=== PATIENT | male | born 1940 | race Caucasian/White ===

== ENCOUNTER → 2023-10-06 12:07 | Outpatient (REF) | payer MEDICARE, BC, SELFPAY ==
[2023-10-06 13:22] LABS: Blood Urea Nitrogen 35 mg/dl (9-20); Calcium 8.6 mg/dl (8.4-10.2); Carbon Dioxide 25 mmol/L (22-30); Chloride 106 mmol/L (98-107); Glucose 79 mg/dl (70-99); Potassium 4.5 mmol/L (3.5-5.1); Sodium 136 mmol/L (135-145); eGFR 46.77
== END ==
LOC: REG 12:07
PROVIDERS: ATTENDING PHYSICIAN Internal Medicine Cardiovascular Disease; FAMILY PHYSICIAN Internal Medicine
DX: I10 Essential (primary) hypertension (principal); I50.32 Chronic diastolic (congestive) heart failure
CPT/HCPCS: 36415; 80048

== ENCOUNTER 2023-10-17 09:39 | Emergency (ER) | payer MEDICARE, BC, SELFPAY ==
[2023-10-17] VITALS (9 sets, daily range): BP systolic 54–172; BP diastolic 62–72
--- NOTE | 2023-10-17 09:56 | ED.GENMED ---
History of Present Illness
<Cornelio Katz Jr., PA-C - Last Filed: 10/17/23 15:21>
General
Chief Complaint: Fall
Source: patient and ambulance crew
Exam Limitations: none
Time Seen by Provider: 10/17/23 09:47
Nursing documentation reviewed up to this point in time: agreed with
Travel History
Have you had any contact with someone who has COVID-19?: No
Do you have any symptoms of coronavirus? Fever > 100 degrees, chills, cough, shortness of breath, sore throat, loss of taste or smell, muscle aches, or headache?: No
History of Present Illness
History of Present Illness:
82-year-old male with past medical history of Parkinson's previous stroke COPD sarcoidosis A-fib currently on Eliquis CHF hypertension hyperlipidemia presenting to the emergency department today with concerns of worsening shortness of breath over
the past 2 days. He claims that 2 days ago he slipped going down the stairs missed 1 step fell forward landing on his right back. Has had pain to the area but tried to see how this went at home over the past 2 days but he has noticed worsening
shortness of breath specifically today.
Past History
<CINDY Lee Jr. Last Filed: 10/17/23 15:21>
Past History
ED Past Medical History: Arrthythmia (Atrial fib), Asthma, CHF, COPD, CVA, HTN, Hypercholesterolemia and Other (Sarcoid, PNA, Parkinson)
ED Past Surgical History: Appendectomy
Social History
Tobacco: Former smoker
Alcohol: Daily (Scotch 1 glasses)
Drug: None
Personal:
Living: with family
Employment: Retired
Family History
Family History: Other (Noncontributory)
Review of Systems
<CINDY Lee Jr. Last Filed: 10/17/23 15:21>
Review of Systems
Allergies reviewed?: Yes
All Other Systems: ROS reviewed and negative except as documented in HPI and ROS
Phy Exam
<Cornelio Katz Jr., PA-C - Last Filed: 10/17/23 15:21>
Physical Exam
Physical Exam:
GENERAL: Alert , in no apparent distress
EYE: pupils equal and reactive
NECK: Supple, no significant adenopathy.
ENT: Superficial abrasion to the right forehead o/p clr, mmm.
CARDIAC: Regular rate and rhythm .
LUNGS: Crepitus to the right upper back, audible lung sounds bilaterally. Breathing heavily some mild wheezing
ABDOMEN: Soft, without focal tenderness, no r/g, no cvat
NEUROLOGICAL: Alert and oriented, no focal neuro deficits
SKIN: Warm and dry, skin intact.
MUSCULOSKELETAL: No edema, well perfused.
PSYCH: Normal and appropriate interaction.
Course
<Cornelio Katz Jr., PA-C - Last Filed: 10/17/23 15:21>
Orders/Labs/Results
Orders:
Orders
10/17/23 09:52
CT Cervical Spine W/o Iv Contr Urgent
Comment:
Reason For Exam: fall hit head
CT Chest/abd/pel W Iv Cont Urgent
Comment:
Reason For Exam: trauma scan, fall hit right back, crepitus on exam
CT Head W/o Iv Contrast Urgent
Comment:
Reason For Exam: fall hit head, on eliquis
10/17/23 09:54
Morphine Sulfate 4 mg IV NOW STA
10/17/23 10:03
Type+Screen Urgent
BNP [NT-proBNP] Urgent
CBC/With Diff [Complete Blood Count/With Diff] Urgent
CMP [Comprehensive Metabolic Panel] Urgent
PT/INR [Prothrombin Time] Urgent
PTT Urgent
10/17/23 11:19
Urinalysis Reflex To Culture Urgent
Date Specimen was Collected: 10/17/23
Time Specimen was Collected: 11:17
Urine Microscopic Reflex Cult Urgent
10/17/23 11:46
Cervical Collar- Treatment ONCE
Collar Type: Hard Cervical Collar
10/17/23 11:48
Fentanyl Citrate/Pf [Sublimaze] 100 mcg IV NOW STA
10/17/23 11:53
Fibrinogen Urgent
Protime/PTT Urgent
10/17/23 12:14
Prothrombin Complex(Pcc),Human [Kcentra] 2,163 unit Empty Viaflex Container 100 ml [Viaflex Empty Container] 80 ml IV NOW
Does patient have a dx of serious acute active bleeding?: No
Does patient have prior history of HIT?: No
Urgent surgery/invasive procedure planned in next 6 hours?: Yes
10/17/23 12:23
Consult Interventional Radiology [IRAD CONSULT] Stat
Consulting Provider: Marco Antonio Lopez
Was physician already notified: Yes
Reason for consult: Chest tube
10/17/23 13:06
Fentanyl Citrate/Pf [Sublimaze] 100 mcg .ROUTE .STK-MED ONE
Midazolam HCl [Versed] 2 mg .ROUTE .STK-MED ONE
10/17/23 13:25
Chest Tube As Directed
Location: right chest tube
To suction: Yes
Suction to __ centimeters of water: -20
May ambulate with suction off?: Yes
Comment: RECORD OUTPUT FROM CHEST TUBE EVERY SHIFT
Abnormal Lab Results
10/17/23 10/17/23 10/17/23
10:03 11:19 11:53
RBC 4.11 L 10^6/uL
(4.70-6.10)
MCV 95.6 H fL
(80.0-94.0)
MCH 32.1 H pg
(27.0-31.0)
Absolute Neuts (auto) 7.7 H 10^3/uL
(1.4-6.5)
Absolute Lymphs (auto) 0.8 L 10^3/uL
(1.2-3.4)
Absolute Monos (auto) 0.7 H 10^3/uL
(0.1-0.6)
Neutrophils % 83.0 H %
(42.2-75.2)
Lymphocytes % 8.2 L %
(20.5-51.1)
PT 20.4 H Sec 21.7 H Sec
(11.4-14.6) (11.4-14.6)
APTT 39.2 H Sec 41.6 H Sec
(23.4-35.0) (23.4-35.0)
Fibrinogen 478 H MG/DL
(199-459)
BUN 29 H mg/dl
(9-20)
Creatinine 1.7 H mg/dL
(0.7-1.3)
Urine Ketones Trace A
(Negative)
Ur Occult Blood Reflex 1+ A
(Negative)
Urine Bacteria (Reflex) Few A
(Negative)
Urine Glucose 2+ A
(Negative)
10/17/23 10:03
10/17/23 10:03
Vital Signs
Initial and Last Documented VS:
Initial Vital Signs
Temp Pulse Resp BP Pulse Ox
97.5 F 57 24 149/64 95
10/17/23 09:46 10/17/23 09:46 10/17/23 09:46 10/17/23 09:46 10/17/23 09:46
Last Documented Vital Signs
Temp Pulse Resp BP Pulse Ox
97.5 F 51 22 146/63 98
10/17/23 13:34 10/17/23 14:15 10/17/23 14:15 10/17/23 14:00 10/17/23 14:15
<Antonio Boggs Polo, DO - Last Filed: 10/17/23 10:23>
Orders/Labs/Results
Orders:
Orders
10/17/23 09:52
CT Cervical Spine W/o Iv Contr Urgent
Comment:
Reason For Exam: fall hit head
CT Chest/abd/pel W Iv Cont Urgent
Comment:
Reason For Exam: trauma scan, fall hit right back, crepitus on exam
CT Head W/o Iv Contrast Urgent
Comment:
Reason For Exam: fall hit head, on eliquis
10/17/23 09:54
Morphine Sulfate 4 mg IV NOW STA
10/17/23 10:03
Type+Screen Urgent
BNP [NT-proBNP] Urgent
CBC/With Diff [Complete Blood Count/With Diff] Urgent
CMP [Comprehensive Metabolic Panel] Urgent
PT/INR [Prothrombin Time] Urgent
PTT Urgent
10/17/23 11:19
Urinalysis Reflex To Culture Urgent
Date Specimen was Collected: 10/17/23
Time Specimen was Collected: 11:17
Urine Microscopic Reflex Cult Urgent
10/17/23 11:46
Cervical Collar- Treatment ONCE
Collar Type: Hard Cervical Collar
10/17/23 11:48
Fentanyl Citrate/Pf [Sublimaze] 100 mcg IV NOW STA
10/17/23 11:53
Fibrinogen Urgent
Protime/PTT Urgent
10/17/23 12:14
Prothrombin Complex(Pcc),Human [Kcentra] 2,163 unit Empty Viaflex Container 100 ml [Viaflex Empty Container] 80 ml IV NOW
Does patient have a dx of serious acute active bleeding?: No
Does patient have prior history of HIT?: No
Urgent surgery/invasive procedure planned in next 6 hours?: Yes
10/17/23 12:23
Consult Interventional Radiology [IRAD CONSULT] Stat
Consulting Provider: Marco Antonio Lopez
Was physician already notified: Yes
Reason for consult: Chest tube
10/17/23 13:06
Fentanyl Citrate/Pf [Sublimaze] 100 mcg .ROUTE .STK-MED ONE
Midazolam HCl [Versed] 2 mg .ROUTE .STK-MED ONE
10/17/23 13:25
Chest Tube As Directed
Location: right chest tube
To suction: Yes
Suction to __ centimeters of water: -20
May ambulate with suction off?: Yes
Comment: RECORD OUTPUT FROM CHEST TUBE EVERY SHIFT
Abnormal Lab Results
10/17/23 10/17/23 10/17/23
10:03 11:19 11:53
RBC 4.11 L 10^6/uL
(4.70-6.10)
MCV 95.6 H fL
(80.0-94.0)
MCH 32.1 H pg
(27.0-31.0)
Absolute Neuts (auto) 7.7 H 10^3/uL
(1.4-6.5)
Absolute Lymphs (auto) 0.8 L 10^3/uL
(1.2-3.4)
Absolute Monos (auto) 0.7 H 10^3/uL
(0.1-0.6)
Neutrophils % 83.0 H %
(42.2-75.2)
Lymphocytes % 8.2 L %
(20.5-51.1)
PT 20.4 H Sec 21.7 H Sec
(11.4-14.6) (11.4-14.6)
APTT 39.2 H Sec 41.6 H Sec
(23.4-35.0) (23.4-35.0)
Fibrinogen 478 H MG/DL
(199-459)
BUN 29 H mg/dl
(9-20)
Creatinine 1.7 H mg/dL
(0.7-1.3)
Urine Ketones Trace A
(Negative)
Ur Occult Blood Reflex 1+ A
(Negative)
Urine Bacteria (Reflex) Few A
(Negative)
Urine Glucose 2+ A
(Negative)
10/17/23 10:03
10/17/23 10:03
Vital Signs
Initial and Last Documented VS:
Initial Vital Signs
Temp Pulse Resp BP Pulse Ox
97.5 F 57 24 149/64 95
10/17/23 09:46 10/17/23 09:46 10/17/23 09:46 10/17/23 09:46 10/17/23 09:46
Last Documented Vital Signs
Temp Pulse Resp BP Pulse Ox
97.5 F 51 22 146/63 98
10/17/23 13:34 10/17/23 14:15 10/17/23 14:15 10/17/23 14:00 10/17/23 14:15
<Cornelio Katz Jr., PA-C - Last Filed: 10/17/23 15:21>
MDM/Problems Addressed
MDM/Problems Addressed:
82-year-old male presenting to the emergency department today with concerns of right back discomfort and worsening shortness of breath over the past 2 days after a fall down 1 step. Here he is crepitus to his right upper back and appears short of
breath. Concern for internal injury plan for CT scan for further assessment. Patient was placed on oxygen and given pain medication. Labs obtained as well. Additionally head CT ordered considering did hit his head and is on Eliquis. CT scan
showing pneumothorax to the right side with 2 rib fractures to ribs 8 and 9. Case immediately discussed with trauma surgery at [facility] who accept transfer but requesting insertion of chest tube prior to transfer. This was placed by IR without
complication. Stable throughout ER stay transferred with ALS. Patient was given Kcentra for Eliquis reversal.
<Cornelio Katz Jr., PA-C - Last Filed: 10/17/23 15:21>
*Critical Care Note
Total Time (30-74mins, 75-104mins- exclusive of procedures): Not Applicable
comment:
Critical care statement: A total of 40 minutes of critical care time was provided for this patient. This includes management of unstable vital signs, evaluation of the patient at bedside, reviewing the patient's pertinent medical records, discussion
with consultants, review of old EKGs and review of pertinent medical records. This time with separate from time utilized to perform the aforementioned documented procedures
ED Attending Note
<Cornelio Katz Jr., PA-C - Last Filed: 10/17/23 15:21>
-
Portions of this chart may have been created with voice recognition software.� Occasional wrong word or��sound alike� substitutions may have occurred due to the inherent limitations of voice recognition software.
<Antonio Cuellar DO - Last Filed: 10/17/23 10:23>
ED Attending Note
Patient seen and examined by attending physician: Yes
I performed the substantive portion of visit, reviewed & personally made and approve the management plan that is documented in note by myself or ALISE.: Yes
I performed a history and physical exam of patient and discussed management with resident, I reviewed resident's note and agree with documented findings and plan of care.: Yes
ED Attending Note:
I evaluated the patient at bedside. He is tachypneic, he appears uncomfortable. He has crepitus on physical examination to the right posterolateral chest. There is no significant abdominal tenderness. He is on Eliquis. CT imaging pending.
Hemoglobin stable compared to prior.
Discharge Plan
Departure
Patient Disposition: Acute Care Hospital
Date of Disposition: 10/17/23
Time of Disposition: 13:12
Patient with high blood pressure during this ER visit?: No
Condition: Good
Covid-19: Not Applicable
Discharge Problem:
Acute pneumothorax, Multiple fractures of ribs of right side
Prescriptions:
No Action
amlodipine 2.5 MG tablet
2.5 mg PO DAILY
sertraline 50 MG tablet
50 mg PO DAILY
losartan 50 MG tablet
50 mg PO BID
rosuvastatin 10 MG tablet
10 mg PO QPM
Eliquis 5 MG tablet
5 mg PO BID
acetaminophen 650 mg Tablet Extended Release
650 mg PO Q8H PRN (Reason: fever)
furosemide 20 mg tablet
20 - 40 mg PO DAILY
Patient Comments:
10/17/2023: Per spouse pt is very non-complient with taking his lasix, she will find piles around the house of untaken med.
Rx Instructions:
20mg on days pt goes out, 40mg on days pt stays home
diphenhydramine-acetaminophen [Tylenol PM Extra Strength] 25-500 mg Tablet
1 tab PO HS
carbidopa-levodopa 25-100 mg tablet
1 tab PO TID
amiodarone 100 mg tablet
100 mg PO QPM
levalbuterol tartrate 45 mcg/actuation HFA aerosol inhaler
2 puff INHALATION R Q4 PRN (Reason: sob/wheezing)
Jardiance 10 mg tablet
10 mg PO DAILY
Breztri Aerosphere 160-9-4.8 mcg/actuation HFA aerosol inhaler
2 inh INHALATION R BID
Referrals:
Winston Sibley MD [Family Provider] -
Hospital Transfer
Other hospital: [facility]
I certify that the patient requires transfer: Yes
Discussed case with accepting physician: Delmi Chamorro
Reason for transfer: higher level of care, availability of service and specialties available
Interventions
Interventions:
*Risk Screen - Suicide Last Done: 10/17/23 09:46
*General Assessment Last Done: 10/17/23 09:46
*Neglect/Abuse Screening Last Done: 10/17/23 09:46
ED- Fall Risk Assessment Last Done: 10/17/23 10:42
*ED COVID-19 Vaccine History Last Done: 10/17/23 10:42
*Nursing Disposition Last Done: 10/17/23 15:08
ED-Musculoskeletal Assessment Last Done: 10/17/23 10:10
ED- Neurological Assessment Last Done: 10/17/23 10:10
ED-Skin Assessment Last Done: 10/17/23 10:10
Discharge Date and Time
Discharge Date/Time: 10/17/23 15:10
[2023-10-17] MEDS: MORPHINE SULFATE 4 MG IV (10:01)
[2023-10-17 10:13] LABS: % Basophils 0.2 % (0-2); % Eosinophils 0.8 % (0-6); % Immature Granulocytes 0.3 % (0-0.5); % Lymphocytes 8.2 % (20.5-51.1); % Monocytes 7.5 % (1.7-9.3); Absolute Eosinophils 0.1 10^3/uL (0-0.7); Absolute Lymphocytes 0.8 10^3/uL (1.2-3.4); Absolute Monocytes 0.7 10^3/uL (0.1-0.6); Absolute Neutrophils 7.7 10^3/uL (1.4-6.5); Hematocrit 39.3 % (39.0-52.0); Hemoglobin 13.2 g/dL (13.0-18.0); Mean Corp Hgb Conc. 33.6 g/dL (33.0-37.0); Mean Corpuscular Hgb 32.1 pg (27.0-31.0); Mean Corpuscular Volume 95.6 fL (80.0-94.0); Mean Platelet Volume 9.7 fL (7.4-10.4); Nucleated Red Blood Cells % 0 % (-); Platelet Count 195 10^3/uL (130-400); Red Blood Cell Count 4.11 10^6/uL (4.70-6.10); Red Cell Dist. Width 13.5 % (11.5-14.5); White Blood Cell Count 9.3 10^3/uL (4.8-10.8)
[2023-10-17 10:28] LABS: ALT (SGPT) 17 U/L (0-50); AST (SGOT) 44 U/L (17-59); Alkaline Phosphatase 94 U/L (38-126); Blood Urea Nitrogen 29 mg/dl (9-20); Calcium 8.7 mg/dl (8.4-10.2); Carbon Dioxide 26 mmol/L (22-30); Chloride 105 mmol/L (98-107); Glucose 98 mg/dl (70-99); INR 1.76; PT 20.4 Sec (11.4-14.6); Potassium 4.2 mmol/L (3.5-5.1); Sodium 138 mmol/L (135-145); Total Bilirubin 0.9 mg/dl (0.2-1.3); Total Protein 6.6 g/dl (6.3-8.2); eGFR 40.25
[2023-10-17 10:29] LABS: APTT 39.2 Sec (23.4-35.0)
[2023-10-17 10:37] LABS: NT-proBNP 1960 pg/ml
[2023-10-17 11:28] LABS: Urine Albumin Trace (Neg - Trace); Urine Bilirubin Negative (Negative); Urine Character Clear (Clear); Urine Color Yellow; Urine Glucose 2+ (Negative); Urine Ketone Trace (Negative); Urine Leukocyte Negative (Negative); Urine Nitrite Negative (Negative); Urine Occult Blood 1+ (Negative); Urine Urobilinogen Negative (Neg - 1+)
[2023-10-17 11:38] LABS: Urine Red Blood Cell 0-2 /HPF (0-2); Urine White Cell 0-2 /HPF (0-5)
[2023-10-17 11:39] LABS: Urine Bacteria Few (Negative)
[2023-10-17] MEDS: SUBLIMAZE 100 MCG IV (11:59)
[2023-10-17] MEDS: KCENTRA 80 UNIT IV (12:21)
[2023-10-17 12:27] LABS: Fibrinogen 478 MG/DL (199-459); PT 21.7 Sec (11.4-14.6)
[2023-10-17 12:28] LABS: APTT 41.6 Sec (23.4-35.0)
== END 2023-10-17 15:10 | disposition short-term general hospital (02) ==
LOC: EMR 09:39
PROVIDERS: Physician Assistant; CONSULT PHYSICIAN Radiology Vascular & Interventional Radiology; EMERGENCY PHYSICIAN Emergency Medicine; FAMILY PHYSICIAN Internal Medicine
DX: S22.41XA Multiple fractures of ribs, right side, initial encounter for closed fracture (principal); S32.038A Other fracture of third lumbar vertebra, initial encounter for closed fracture; J93.83 Other pneumothorax; W19.XXXA Unspecified fall, initial encounter; G20.A1 Parkinson's disease without dyskinesia, without mention of fluctuations; I11.0 Hypertensive heart disease with heart failure; I50.9 Heart failure, unspecified; D86.9 Sarcoidosis, unspecified; E78.00 Pure hypercholesterolemia, unspecified; I48.91 Unspecified atrial fibrillation; J44.89 Other specified chronic obstructive pulmonary disease; Z79.01 Long term (current) use of anticoagulants; Z86.73 Personal history of transient ischemic attack (TIA), and cerebral infarction without residual deficits; Z87.891 Personal history of nicotine dependence; Z90.49 Acquired absence of other specified parts of digestive tract
CPT/HCPCS: 99285; 32551; 96374; 96375; 32557; 70450; 71260; 72125; 74177; 80053; 81003; 81015; 83880; 85025; 85384; 85610; 85730; 86850; 86900; 86901; 99152; 99153; C1729; C1769; J7168; Q9967

== ENCOUNTER 2024-01-13 15:26 | Day surgery (SDC) | payer MEDICARE, BC, SELFPAY ==
[2024-01-13] VITALS (11 sets, daily range): BP systolic 129–161; BP diastolic 60–79; BMI 24.6
--- NOTE | 2024-01-13 07:47 | ED.GENMED ---
History of Present Illness
General
Chief Complaint: Swallowing Problem
Source: patient
Exam Limitations: none
Time Seen by Provider: 01/13/24 07:18
Nursing documentation reviewed up to this point in time: agreed with
Travel History
Have you had any contact with someone who has COVID-19?: No
Do you have any symptoms of coronavirus? Fever > 100 degrees, chills, cough, shortness of breath, sore throat, loss of taste or smell, muscle aches, or headache?: No
History of Present Illness
History of Present Illness:
pt is a 83 y/o M with h/o parkinsons, afib on eliquis, CHF on Lasix presents after eating dinner last night and feeling as though his food got stuck. Patient was eating gillespie chops and beets. He says he felt discomfort like his food did not go all
the way down. He tried drinking a small amount of water but then ended up bringing that up. He says he was awake all night with a cup and he was spitting into the cup every now and then. Patient does not have any discomfort currently, he does not
feel full. But he does have chronic shortness of breath secondary to COPD and feels a little bit short of breath this morning. This is not a new problem for him. He has been using lev albuterol inhaler and occasionally nebulizer. He has not had
a fever or chills, chest pain, pleuritic pain. This is never happened to him before, he has never had a food impaction or an endoscopy.
Past History
Past History
ED Past Medical History: Arrthythmia (Atrial fib), Asthma, CHF, COPD, CVA, HTN, Hypercholesterolemia and Other (Sarcoid, PNA, Parkinson)
ED Past Surgical History: Appendectomy
Social History
Tobacco: Former smoker
Alcohol: Daily (Scotch 1 glasses)
Drug: None
Personal:
Living: with family
Employment: Retired
Family History
Family History: Other (Noncontributory)
Review of Systems
Review of Systems
Allergies reviewed?: Yes
All Other Systems: Not applicable
Phy Exam
Physical Exam
Physical Exam:
GENERAL: Alert , appears slightly uncomfortable, has a bucket with saliva but is not actively drooling
EYE: pupils equal and reactive
NECK: Supple
ENT: o/p clr, mmm.
CARDIAC: Regular rate and rhythm .
LUNGS: Very faint end expiratory wheezing, mild tachypnea no acute respiratory distress, no wheezes/rales/rhonchi
ABDOMEN: Soft, without focal tenderness, no r/g, no cvat, normal bowel sounds
NEUROLOGICAL: Alert and oriented, no focal neuro deficits
SKIN: Warm and dry, skin intact.
MUSCULOSKELETAL: Trace edema bilateral lower extremities
PSYCH: Normal and appropriate interaction.
Course
Orders/Labs/Results
Orders:
Orders
01/13/24 07:40
CR Chest - 2 Views Urgent
Comment:
Reason For Exam: food bolus; copd; aspiration?
01/13/24 07:45
Complete Blood Count/With Diff Urgent
Comprehensive Metabolic Panel Urgent
01/13/24 08:26
Levalbuterol [Xopenex 0.63 mg Inhalant Solution] 0.63 mg INH R NOW STA
01/13/24 08:30
Glucagon [GlucaGen] 1 mg IV NOW STA
01/13/24 09:11
Glucagon [GlucaGen] 1 mg IV NOW STA
01/13/24 13:12
Dexamethasone Pf [Decadron] 10 mg .ROUTE .STK-MED ONE
Lidocaine 2% Mpf [Xylocaine Mpf 2%] 100 mg .ROUTE .STK-MED ONE
Ondansetron Injectable [Zofran] 4 mg .ROUTE .STK-MED ONE
01/13/24 13:13
Fentanyl Citrate/Pf [Sublimaze] 100 mcg .ROUTE .STK-MED ONE
Propofol [Diprivan] 20 ml .ROUTE .STK-MED
Rocuronium [place] [Rocuronium] 50 mg .ROUTE .STK-MED ONE
Succinylcholine Chloride [Succinylcholine] 200 mg .ROUTE .STK-MED ONE
01/13/24 13:14
Sugammadex Sodium [Bridion] 200 mg .ROUTE .STK-MED ONE
01/13/24 13:53
HYDROmorphone [Dilaudid] 0.25 mg IV PACU-Q5MPRN PRN
Meperidine [Demerol] 12.5 mg IV PACU-Q5MPRN PRN
Morphine Sulfate 1 mg IV PACU-Q5MPRN PRN
Ondansetron Injectable [Zofran] 4 mg IV PACU-ONCEPRN PRN
Prochlorperazine [Compazine] 5 mg IV PACU-ONCEPRN PRN
Notify MD As Directed
Notify physician if: for SDS patients with known or suspected sleep obstructive sleep apnea, monitor in the
PACU.
Notify MD for any apneic/desaturation episodes
O2 Therapy [RESP] Urgent
Titrate/Wean O2 to maintain O2 sat greater than (%): 92
Special Instructions: -Provide supplemental oxygen to achieve O2 sat of 92% or greater.
-After 15 min, may wean O2 and discontinue if patient is able to maintain O2 sat of 92%
or greater during recovery period.
If patient is a discharge home, without oxygen therapy, notify anestheiologist if
unable to maintain O2 SAT of 92% or greater on room air for MD clearance.
01/13/24 14:00
Normosol (Mult Electrolytes) [Normosol-R] 1,000 ml IV PER PROTOCOL
01/13/24 14:12
Sugammadex Sodium [Bridion] 200 mg .ROUTE .STK-MED ONE
Abnormal Lab Results
01/13/24
07:45
RBC 4.06 L 10^6/uL
(4.70-6.10)
Hgb 12.6 L g/dL
(13.0-18.0)
Hct 37.8 L %
(39.0-52.0)
Absolute Lymphs (auto) 1.0 L 10^3/uL
(1.2-3.4)
Neutrophils % 78.6 H %
(42.2-75.2)
Lymphocytes % 12.9 L %
(20.5-51.1)
BUN 46 H mg/dl
(9-20)
Creatinine 1.7 H mg/dL
(0.7-1.3)
01/13/24 07:45
01/13/24 07:45
Vital Signs
Initial and Last Documented VS:
Initial Vital Signs
Temp Pulse Resp BP Pulse Ox
98.5 F 50 16 144/60 96
01/13/24 07:07 01/13/24 07:07 01/13/24 07:07 01/13/24 07:07 01/13/24 07:07
Last Documented Vital Signs
Temp Pulse Resp BP Pulse Ox
98.5 F 54 16 144/68 95
01/13/24 07:07 01/13/24 12:26 01/13/24 08:29 01/13/24 13:00 01/13/24 13:15
MDM/Problems Addressed
Differential Diagnosis Includes:
food bolus, esophagitis, copd
MDM/Problems Addressed:
83 y/o M with h/o parkinsons
was eating dinner and felt food get stuck
hasn't been able to tolerate po since
spiting secretions into a basin
awake all night
also has COPD and felt some sob this morning, due for a treatment
on exam stable vitals
very faint end exp wheezes
and scretions in a basin, no resp distress, no drooling
d/w gi who recommended glucagon 1 mg IV x 2 and if no improvement, gi suite
pt did get smoe chunks of something after glucagon but then did not tolerate a sip of water
went to endoscopy
to be d/c'd from suite.
*Critical Care Note
Total Time (30-74mins, 75-104mins- exclusive of procedures): Not Applicable
ED Attending Note
-
Portions of this chart may have been created with voice recognition software.� Occasional wrong word or��sound alike� substitutions may have occurred due to the inherent limitations of voice recognition software.
Discharge Plan
Departure
Patient Disposition: GI LAB
Date of Disposition: 01/13/24
Time of Disposition: 14:20
Presentation/result/management discussed w/ accepting MD/DO: av
Condition: Fair
Covid-19: Not Applicable
Discharge Problem:
Food bolus obstruction of intestine
Prescriptions:
No Action
amlodipine 2.5 MG tablet
2.5 mg PO DAILY
sertraline 50 MG tablet
50 mg PO DAILY
losartan 50 MG tablet
50 mg PO BID
rosuvastatin 10 MG tablet
10 mg PO QPM
Eliquis 5 MG tablet
5 mg PO BID
acetaminophen 650 mg Tablet Extended Release
650 mg PO Q8H PRN (Reason: fever)
furosemide 20 mg tablet
20 - 40 mg PO DAILY
Patient Comments:
10/17/2023: Per spouse pt is very non-complient with taking his lasix, she will find piles around the house of untaken med.
Rx Instructions:
20mg on days pt goes out, 40mg on days pt stays home
diphenhydramine-acetaminophen [Tylenol PM Extra Strength] 25-500 mg Tablet
1 tab PO HS
carbidopa-levodopa 25-100 mg tablet
1 tab PO TID
amiodarone 100 mg tablet
100 mg PO QPM
levalbuterol tartrate 45 mcg/actuation HFA aerosol inhaler
2 puff INHALATION R Q4 PRN (Reason: sob/wheezing)
Jardiance 10 mg tablet
10 mg PO DAILY
Breztri Aerosphere 160-9-4.8 mcg/actuation HFA aerosol inhaler
2 inh INHALATION R BID
Referrals:
Winston Sibley MD [Family Provider] -
Interventions
Interventions:
*Risk Screen - Suicide Last Done: 01/13/24 07:12
*General Assessment Last Done: 01/13/24 07:11
*Neglect/Abuse Screening Last Done: 01/13/24 07:12
ED- Fall Risk Assessment Last Done: 01/13/24 07:12
*ED COVID-19 Vaccine History Last Done: 01/13/24 07:11
*Nursing Disposition Last Done: 01/13/24 14:14
ED-EENT Assessment Last Done: 01/13/24 07:13
QH-Isdeql-Klzsgwjcrg Assessment Last Done: 01/13/24 07:13
ED- Pulmonary Assessment Last Done: 01/13/24 07:13
ED- Neurological Assessment Last Done: 01/13/24 07:13
ED Swallowing Screen Last Done: 01/13/24 13:29
Discharge Date and Time
Discharge Date/Time: 01/13/24 14:21
Print Language: UGANDAN
[2024-01-13 07:52] LABS: % Basophils 0.4 % (0-2); % Eosinophils 1.8 % (0-6); % Immature Granulocytes 0.3 % (0-0.5); % Lymphocytes 12.9 % (20.5-51.1); % Neutrophils 78.6 % (42.2-75.2); Absolute Eosinophils 0.1 10^3/uL (0-0.7); Absolute Monocytes 0.5 10^3/uL (0.1-0.6); Absolute Neutrophils 6.1 10^3/uL (1.4-6.5); Hematocrit 37.8 % (39.0-52.0); Hemoglobin 12.6 g/dL (13.0-18.0); Mean Corp Hgb Conc. 33.3 g/dL (33.0-37.0); Mean Corpuscular Volume 93.1 fL (80.0-94.0); Mean Platelet Volume 9.6 fL (7.4-10.4); Nucleated Red Blood Cells % 0 % (-); Platelet Count 222 10^3/uL (130-400); Red Blood Cell Count 4.06 10^6/uL (4.70-6.10); Red Cell Dist. Width 13.9 % (11.5-14.5); White Blood Cell Count 7.7 10^3/uL (4.8-10.8)
[2024-01-13 08:23] LABS: ALT (SGPT) < 10 U/L (0-50); AST (SGOT) 23 U/L (17-59); Alkaline Phosphatase 111 U/L (38-126); Blood Urea Nitrogen 46 mg/dl (9-20); Calcium 9.2 mg/dl (8.4-10.2); Carbon Dioxide 25 mmol/L (22-30); Chloride 106 mmol/L (98-107); Estimated Creatinine Clearance 37 ml/min; Glucose 96 mg/dl (70-99); Potassium 4.7 mmol/L (3.5-5.1); Sodium 141 mmol/L (135-145); Total Bilirubin 0.6 mg/dl (0.2-1.3); Total Protein 6.7 g/dl (6.3-8.2)
[2024-01-13] MEDS: XOPENEX 0.63 MG INHALANT SOLUTION 0.630000000000000004 MG INH (08:30)
[2024-01-13] MEDS: GlucaGen 1 MG IV ×2 (08:40→09:17)
--- NOTE | 2024-01-13 12:03 | CON.GI ---
Consultation
-
Date/Time Consultation Requested: 01/13/24 at 9am
Date/Time Consultation Performed: 01/13/24 at 9:30 am
Requesting Provider: Denita
Performing Provider: Trinh
Reason for Consultation: food impaction
Medical History
Chief Complaint / HPI
Chief Complaint: food impaction
History of Present Illness:
Pt is a 83 y/o man with parkinsons, on eliquis for hx of afib, chf, copd who has a hx of intermittent dysphagia to solids, no food impactions but does sometimes wash food down. he had gillespie and beets yesterday and had feeling of food getting stuck.
he has had some spitting of red beet juice. he did get 2 doses of glucoagon which improved his symptoms but not totally alleviated. He doesn't have overt gerd. he has never had an endoscopy. he is in the ER with his .
Past Medical History
Past Medical History: Other (afib, copd, chf, cva, htn, parkinsons)
Past Surgical History: Appendectomy
Social History
Tobacco: Former Smoker
Alcohol: Other (daily scotch)
Personal:
Family History
Family History: Reviewed & Not Pertinent
Allergies / Home Medications
Allergy/AdvReac Type Severity Reaction Status Date / Time
grass pollen Allergy SNEEZE,WATERY Verified 10/17/23 09:45
EYES
No Known Drug Allergies Allergy NA Verified 10/17/23 09:45
�Medication �Instructions �Recorded
amlodipine 2.5 mg tablet 2.5 mg PO DAILY Blood pressure 11/17/20
apixaban 5 mg tablet (Eliquis) 5 mg PO BID Blood clot 08/21/21
prevention/tx
losartan 50 mg tablet 50 mg PO BID Blood pressure 08/21/21
rosuvastatin 10 mg tablet 10 mg PO QPM High cholesterol 08/21/21
sertraline 50 mg tablet 50 mg PO DAILY 08/21/21
acetaminophen 650 mg 650 mg PO Q8H PRN fever 10/17/23
tablet,extended release
amiodarone 100 mg tablet 100 mg PO QPM 10/17/23
budesonide 160 mcg-glycopyr 9 2 inh inhalation R BID 10/17/23
mcg-formot 4.8 mcg/actuation HFA
inhaler (Breztri Aerosphere)
carbidopa 25 mg-levodopa 100 mg 1 tab PO TID 10/17/23
tablet
diphenhydramine 25 1 tab PO HS 10/17/23
mg-acetaminophen 500 mg tablet
(Tylenol PM Extra Strength)
empagliflozin 10 mg tablet 10 mg PO DAILY 10/17/23
(Jardiance)
furosemide 20 mg tablet 20 - 40 mg PO DAILY 10/17/23
levalbuterol tartrate 45 2 puff inhalation R Q4 PRN 10/17/23
mcg/actuation aerosol inhaler sob/wheezing
Review of Systems
-
All other systems: A 12 pt ROS was Negative except as stated above in HPI
Vital Signs
Temp Pulse Resp BP Pulse Ox
98.5 F 55 16 153/73 95
01/13/24 07:07 01/13/24 08:29 01/13/24 08:29 01/13/24 11:00 01/13/24 11:15
Physical Exam
Exam
General: Other (some discomfort due to feeling of impaction)
HEENT: Anicteric
Cardiac: S1/S2 and Regular Rhythm
GI: Soft, Non Tender and Non Distended
Neuro: AO x 3
Psych: Calm
Results
WBC 7.7 10^3/uL (4.8-10.8) 01/13/24 07:45
Hgb 12.6 g/dL (13.0-18.0) L 01/13/24 07:45
Hct 37.8 % (39.0-52.0) L 01/13/24 07:45
MCV 93.1 fL (80.0-94.0) 01/13/24 07:45
Plt Count 222 10^3/uL (130-400) 01/13/24 07:45
Absolute Neuts (auto) 6.1 10^3/uL (1.4-6.5) 01/13/24 07:45
Sodium 141 mmol/L (135-145) 01/13/24 07:45
Potassium 4.7 mmol/L (3.5-5.1) 01/13/24 07:45
Chloride 106 mmol/L (98-107) 01/13/24 07:45
Carbon Dioxide 25 mmol/L (22-30) 01/13/24 07:45
BUN 46 mg/dl (9-20) H 01/13/24 07:45
Creatinine 1.7 mg/dL (0.7-1.3) H 01/13/24 07:45
Calcium 9.2 mg/dl (8.4-10.2) 01/13/24 07:45
Total Bilirubin 0.6 mg/dl (0.2-1.3) 01/13/24 07:45
AST 23 U/L (17-59) 01/13/24 07:45
ALT < 10 U/L (0-50) 01/13/24 07:45
Alkaline Phosphatase 111 U/L (38-126) 01/13/24 07:45
Assessment / Plan
-
This patient is a 83 y/o man with a hx of afib on eliquis, copd, parkinsons with a food impaction. His INR is 1.9, he did receive glucagon. Recommend
EGD today with intubation and removal of food impaction
will need outpatient PPI
-
-
Thank you for consultation and allowing me to participate in the patient's care. Please call the forestry consultant GI physician during the after hours with any questions or concerns.
== END 2024-01-13 15:50 | disposition home or self-care (01) ==
LOC: GI 15:26
PROVIDERS: Physician Assistant; ATTENDING PHYSICIAN Internal Medicine; EMERGENCY PHYSICIAN Emergency Medicine; FAMILY PHYSICIAN Internal Medicine
DX: T18.128A Food in esophagus causing other injury, initial encounter (principal); W44.9XXA Unspecified foreign body entering into or through a natural orifice, initial encounter; K20.90 Esophagitis, unspecified without bleeding
CPT/HCPCS: 43247; 71046; 80053; 85025; J1610

== ENCOUNTER 2024-04-08 08:54 | Inpatient (IN) | payer MEDICARE, BC, SELFPAY ==
[2024-04-07] VITALS (9 sets, daily range): BP systolic 121–170; BP diastolic 53–84; PULSE 53; O2SAT 96; BMI 24.4; BMI 25.3
--- NOTE | 2024-04-07 15:40 | ED.GENMED ---
History of Present Illness
<Chayito Jones MD, Resident - Last Filed: 04/07/24 18:41>
General
Chief Complaint: Fall
Time Seen by Provider: 04/07/24 15:08
History of Present Illness
History of Present Illness:
83 yo male today presented to ER after he fall down at [facility] around 1.00 pm. He stated that he was trying to go inside of the elevator with his walker and, the elevator door pushed him back. He reported that he fall down on his back
and hit his head. He reports pain on his back of head, on his neck and on his left shoulder. He denies chest pain, dizziness and SOB.
If applicable-neuro sx onset
Date of onset of symptoms: 04/07/24
Past History
<Chayito Jones MD, Resident - Last Filed: 04/07/24 18:41>
Past History
ED Past Medical History: Arrthythmia (Atrial fib), Asthma, CHF, COPD, CVA, HTN, Hypercholesterolemia and Other (Sarcoid, PNA, Parkinson)
ED Past Surgical History: Appendectomy
Social History
Tobacco: Former smoker
Alcohol: Daily (Scotch 1 glasses)
Drug: None
Personal:
Living: with family
Employment: Retired
Family History
Family History: Other (Noncontributory)
Phy Exam
<Chayito Jones MD, Resident - Last Filed: 04/07/24 18:41>
General Physical Exam
General Presentation: moderate distress
General age: appears stated age
General Skin: warm
General Mental: alert
Cardiovascular Exam
Cardiovascular Exam: no edema, no JVD and other
Pulmonary Exam
Pulmonary Exam: lungs clear, no respiratory distress, no crackles and no wheezing
Neurological Exam
Neurological Exam: alert, oriented x3 and speech normal
Musculoskeletal Exam
Musculoskeletal Exam: neck pain and other (left shoulder ROM is limited with pain. Pain on left clavicular area )
Course
<Chayito Jones MD, Resident - Last Filed: 04/07/24 18:41>
Orders/Labs/Results
Orders:
Orders
04/07/24 14:08
CT Head W/o Iv Contrast Urgent
Comment:
Reason For Exam: pt fell, injured back of head, on eliquis
Cervical Spine wo Contrast CT [CT Cervical Spine W/o Iv Contr] Urgent
Comment:
Reason For Exam: pt fell, injured back of head, on eliquis
04/07/24 14:09
Shoulder, Left, Trauma CR [CR Shoulder, Trauma - Left] Urgent
Comment:
Reason For Exam: fall, left shoulder injury
04/07/24 Dinner
Regular
At Your Request: Limited Participation
04/07/24 15:36
Physical Therapy Consult [Pt Eval And Treat] Urgent
Activity Level: Ambulate
04/07/24 15:48
Acetaminophen [Tylenol] 1,000 mg PO Q6HPRN PRN
04/07/24 16:16
Sling Left-Treatment ONCE
04/07/24 16:57
Admit/Transfer Patient As Directed
Co-Sign Provider:
Level of Care: Observation services
Assign to:: Medical/Surgical
Physician / Group: charisse
Diagnosis: clavicle fracture
PRN Pain Medication Management As Directed
May give lesser potent ordered pain med per pt: Yes
preference::
Protocol:: Medication orders for pain may be administered in a
manner that supports deferring to patient preference
when the pt is:
- Requesting an ordered lesser potent pain medication.
Least to most potent pain medications are defined
as: acetaminophen < NSAID < tramadol < opioids
(morphine, oxycodone, hydromorphone).
- Requesting a lesser dose of the same medication IF
ORDERED.
- Requesting a less intrusive route of administration
if both routes are prescribed by the provider (PO <
IV).
04/07/24 16:58
Code Status As Directed
Resuscitation Status: Full Code
04/07/24 18:31
Acetaminophen [Tylenol] 650 mg PO Q4HPRN PRN
Amiodarone [Pacerone] 100 mg PO QPM
Carbidopa/Levodopa [Sinemet 25-100] 1 tablet PO BID@0800,1800
Levalbuterol Tartrate [Xopenex Hfa 45 Mcg Inhaler] 2 puff INH R Q4HPRN PRN
Oxycodone [Roxicodone] 5 mg PO Q4HPRN PRN
Rosuvastatin Calcium [Crestor] 10 mg PO QPM
04/07/24 18:31
Case Management Consult ONCE
Case Management Consult: Discharge Planning
ORTHOPEDIC CONSULT Routine
Consulting Provider: Guillermo Berry
Was physician already notified: Yes
Activity As Directed
Activity Level: As Tolerated
Pneumatic Compression Sleeves As Directed
Type: Knee high
Vital Signs As Directed
Frequency: Per unit guidelines
Xopenex Reason for Use As Directed
Reason for ordering Xopenex instead of Albuterol: tachy
DX Deep Vein Thrombosis Video Routine
04/07/24 20:00
Losartan [Cozaar] 50 mg PO BID
04/08/24 06:00
Basic Metabolic Panel IN AM
Complete Blood Count/No Diff IN AM
04/08/24 08:00
Amlodipine [Norvasc] 2.5 mg PO DAILY
Empagliflozin [Jardiance] 10 mg PO DAILY
Furosemide [Lasix] 20 mg PO DAILY
Sertraline HCl [Zoloft] 50 mg PO DAILY
itwfbkdyoaf-qdkxylvka-sanbjxwr [Trelegy Ellipta] 1 inh INH R DAILY
04/08/24 12:00
Carbidopa/Levodopa [Sinemet 25-100] 1.5 tablet PO NOON
Vital Signs
Initial and Last Documented VS:
Initial Vital Signs
Temp Pulse Resp BP Pulse Ox
97.4 F 46 18 137/63 96
04/07/24 14:04 04/07/24 14:04 04/07/24 14:04 04/07/24 14:04 04/07/24 14:04
Last Documented Vital Signs
Temp Pulse Resp BP Pulse Ox
97.7 F 55 18 169/84 97
04/07/24 18:52 04/07/24 18:52 04/07/24 18:52 04/07/24 18:52 04/07/24 18:52
<Antonio Cuellar, - Last Filed: 04/07/24 19:03>
Orders/Labs/Results
Orders:
Orders
04/07/24 14:08
CT Head W/o Iv Contrast Urgent
Comment:
Reason For Exam: pt fell, injured back of head, on eliquis
Cervical Spine wo Contrast CT [CT Cervical Spine W/o Iv Contr] Urgent
Comment:
Reason For Exam: pt fell, injured back of head, on eliquis
04/07/24 14:09
Shoulder, Left, Trauma CR [CR Shoulder, Trauma - Left] Urgent
Comment:
Reason For Exam: fall, left shoulder injury
04/07/24 Dinner
Regular
At Your Request: Limited Participation
04/07/24 15:36
Physical Therapy Consult [Pt Eval And Treat] Urgent
Activity Level: Ambulate
04/07/24 15:48
Acetaminophen [Tylenol] 1,000 mg PO Q6HPRN PRN
04/07/24 16:16
Sling Left-Treatment ONCE
04/07/24 16:57
Admit/Transfer Patient As Directed
Co-Sign Provider:
Level of Care: Observation services
Assign to:: Medical/Surgical
Physician / Group: charisse
Diagnosis: clavicle fracture
PRN Pain Medication Management As Directed
May give lesser potent ordered pain med per pt: Yes
preference::
Protocol:: Medication orders for pain may be administered in a
manner that supports deferring to patient preference
when the pt is:
- Requesting an ordered lesser potent pain medication.
Least to most potent pain medications are defined
as: acetaminophen < NSAID < tramadol < opioids
(morphine, oxycodone, hydromorphone).
- Requesting a lesser dose of the same medication IF
ORDERED.
- Requesting a less intrusive route of administration
if both routes are prescribed by the provider (PO <
IV).
04/07/24 16:58
Code Status As Directed
Resuscitation Status: Full Code
04/07/24 18:31
Acetaminophen [Tylenol] 650 mg PO Q4HPRN PRN
Amiodarone [Pacerone] 100 mg PO QPM
Carbidopa/Levodopa [Sinemet 25-100] 1 tablet PO BID@0800,1800
Levalbuterol Tartrate [Xopenex Hfa 45 Mcg Inhaler] 2 puff INH R Q4HPRN PRN
Oxycodone [Roxicodone] 5 mg PO Q4HPRN PRN
Rosuvastatin Calcium [Crestor] 10 mg PO QPM
04/07/24 18:31
Case Management Consult ONCE
Case Management Consult: Discharge Planning
ORTHOPEDIC CONSULT Routine
Consulting Provider: Guillermo Berry
Was physician already notified: Yes
Activity As Directed
Activity Level: As Tolerated
Pneumatic Compression Sleeves As Directed
Type: Knee high
Vital Signs As Directed
Frequency: Per unit guidelines
Xopenex Reason for Use As Directed
Reason for ordering Xopenex instead of Albuterol: tachy
DX Deep Vein Thrombosis Video Routine
04/07/24 20:00
Losartan [Cozaar] 50 mg PO BID
04/08/24 06:00
Basic Metabolic Panel IN AM
Complete Blood Count/No Diff IN AM
04/08/24 08:00
Amlodipine [Norvasc] 2.5 mg PO DAILY
Empagliflozin [Jardiance] 10 mg PO DAILY
Furosemide [Lasix] 20 mg PO DAILY
Sertraline HCl [Zoloft] 50 mg PO DAILY
nyrjsaejold-kpdbgzewt-baufbwqa [Trelegy Ellipta] 1 inh INH R DAILY
04/08/24 12:00
Carbidopa/Levodopa [Sinemet 25-100] 1.5 tablet PO NOON
Vital Signs
Initial and Last Documented VS:
Initial Vital Signs
Temp Pulse Resp BP Pulse Ox
97.4 F 46 18 137/63 96
04/07/24 14:04 04/07/24 14:04 04/07/24 14:04 04/07/24 14:04 04/07/24 14:04
Last Documented Vital Signs
Temp Pulse Resp BP Pulse Ox
97.7 F 55 18 169/84 97
04/07/24 18:52 04/07/24 18:52 04/07/24 18:52 04/07/24 18:52 04/07/24 18:52
<Chayito Jones MD, Resident - Last Filed: 04/07/24 18:41>
*Critical Care Note
Total Time (30-74mins, 75-104mins- exclusive of procedures): Not Applicable
<Chayito Jones MD, Resident - Last Filed: 04/07/24 18:41>
Comment
Comment:
Head trauma, musculoskeletal injury?
ED Attending Note
<Chayito Jones MD, Resident - Last Filed: 04/07/24 18:41>
-
Portions of this chart may have been created with voice recognition software.� Occasional wrong word or��sound alike� substitutions may have occurred due to the inherent limitations of voice recognition software.
<Antonio Cuellar DO - Last Filed: 04/07/24 19:03>
ED Attending Note
Patient seen and examined by attending physician: Yes
I performed the substantive portion of visit, reviewed & personally made and approve the management plan that is documented in note by myself or ALISE.: Yes
I performed a history and physical exam of patient and discussed management with resident, I reviewed resident's note and agree with documented findings and plan of care.: Yes
ED Attending Note:
I evaluated the patient at bedside. The patient has Parkinson's. I spoke to care management. He is found to have a medial left clavicle fracture which is comminuted. I spoke to Dr. Berry. He recommends sling for 4 weeks before resuming
walker. Unfortunately he lives at home with and he cannot safely be discharged. I spoke to care management. Care management says that he has Medicare primary and IBC secondary. I spoke to hospitalist who accepts to their service.
Discharge Plan
Departure
Patient Disposition: Admit
Date of Disposition: 04/07/24
Time of Disposition: 16:37
Presentation/result/management discussed w/ accepting MD/DO: Hospitalist
Discharge Problem:
Clavicle fracture
Interventions
Interventions:
*Risk Screen - Suicide Last Done: 04/07/24 14:04
*General Assessment Last Done: 04/07/24 14:04
*Neglect/Abuse Screening Last Done: 04/07/24 14:04
ED- Fall Risk Assessment Last Done: 04/07/24 15:06
*ED COVID-19 Vaccine History Last Done: 04/07/24 15:06
*Nursing Disposition Last Done: 04/07/24 18:42
ED-Musculoskeletal Assessment Last Done: 04/07/24 15:06
ED- Neurological Assessment Last Done: 04/07/24 15:06
ED-Skin Assessment Last Done: 04/07/24 15:06
Discharge Date and Time
Discharge Date/Time: 04/07/24 18:42
[2024-04-07] MEDS: TYLENOL 1000 MG PO (16:27)
--- NOTE | 2024-04-07 16:30 | PTCARENOTE ---
Sling applied per MD order. Pt states his pain is worse with the sling on. Sling taken off per pt request. Pt medicated with Tylenol. Will retry the sling later. Will continue to monitor.
[ End ]
--- NOTE | 2024-04-07 17:00 | HPS.HSE ---
Addendum entered and electronically signed by Frankie Dudley MD 04/08/24 16:18:
Correction to H&P. Retraction of 'PT and case management saw patient, patient requires 3 days admission for placement given Medicare, family cannot take him home' as this was not accurate and entered in error.
Original Note:
Family Physician
-
Family Physician: Winston Sibley
Chief Complaint
-
fall
History of Present Illness
83-year-old male with past medical history of paroxysmal atrial fibrillation on Eliquis, nonsustained V. tach, frequent PVCs, right bundle branch, hypertension, hypercholesteremia, HFpEF, prior CVA, COPD, asthma, sarcoidosis, obstructive sleep
apnea, Parkinson's disease, depression, chronic venous deficiency, diverticulosis, colonic polyps, lumbar degenerative disc disease, compression fractures of L2-L4, CKD 3, presenting after fall down at [facility] 1 PM. He was trying to go
inside of the elevator with his walker and the elevator door pushed him back. He fell down onto his back and hit his head. He has pain on the back of his head and neck and left shoulder. He denies chest pain or shortness of breath or dizziness.
Medical History
Past Medical History
Past Medical History: Reports Other (paroxysmal atrial fibrillation on Eliquis, nonsustained V. tach, frequent PVCs, right bundle branch, hypertension, hypercholesteremia, HFpEF, prior CVA, COPD, asthma, sarcoidosis, obstructive sleep apnea,
Parkinson's disease, depression, chronic venous deficiency, diverticulosis, colonic polyps, lum)
Past Surgical History: Reports Other (Appendectomy)
Social History
Tobacco: Non-smoker
Alcohol: Daily (1 drink daily )
Drug: None
Family History
Family History: Not pertinent
Allergies / Home Medications
Allergies reflects when Allergies were last updated in [employer].
Home Medications with original date entered in [employer]
Allergy/Medication List:
Allergies
Allergy/AdvReac Type Severity Reaction Status Date / Time
grass pollen Allergy SNEEZE,WATERY Verified 10/17/23 09:45
EYES
No Known Drug Allergies Allergy NA Verified 10/17/23 09:45
Home Medications
amlodipine 2.5 mg tablet 2.5 mg PO DAILY Blood pressure 11/17/20
apixaban 5 mg tablet (Eliquis) 5 mg PO BID Blood clot prevention/tx 08/21/21
losartan 50 mg tablet 50 mg PO BID Blood pressure 08/21/21
rosuvastatin 10 mg tablet 10 mg PO QPM High cholesterol 08/21/21
sertraline 50 mg tablet 50 mg PO DAILY 08/21/21
amiodarone 100 mg tablet 100 mg PO QPM 10/17/23
carbidopa 25 mg-levodopa 100 mg tablet 1 tab PO BID@0800,1800 10/17/23
diphenhydramine 25 mg-acetaminophen 500 mg tablet (Tylenol PM Extra Strength) 1 tab PO HS 10/17/23
empagliflozin 10 mg tablet (Jardiance) 10 mg PO DAILY 10/17/23
furosemide 20 mg tablet 20 mg PO DAILY 10/17/23
levalbuterol tartrate 45 mcg/actuation aerosol inhaler 2 puff inhalation R Q4HPRN PRN sob/wheezing 10/17/23
carbidopa 25 mg-levodopa 100 mg tablet 1.5 tab PO NOON 04/07/24
fluticasone fur. 100 mcg-umeclid 62.5 mcg-vilant 25 mcg inhalat.powder (Trelegy Ellipta) 1 inh inhalation R DAILY 04/07/24
Review of Systems
-
History Source: Patient
A 12 point ROS was completed and negative except as noted: Yes
Constitutional: Reports No Symptoms
EENT: Reports No Symptoms
Respiratory: Reports No Symptoms
Cardiac: Reports No Symptoms
Abdomen/GI: Reports No Symptoms
: Reports No Symptoms
Musculoskeletal: Reports See HPI
Skin: Reports No Symptoms
Neurological: Reports No Symptoms
Endocrine: Reports No Symptoms
Hematologic/Lymphatic: Reports No Symptoms
Psych: Reports No Symptoms
Physical Exam
Vital Signs
Vital Signs
Temp Pulse Resp BP Pulse Ox
97.4 F 51 28 169/77 98
04/07/24 14:04 04/07/24 16:30 04/07/24 16:30 04/07/24 16:18 04/07/24 16:18
Physical Exam
General: Well Developed, Well Nourished and No Apparent Distress
HEENT: NormoCephalic, Moist mucous membranes, Atraumatic and Other (posterior scalp hematoma left shoulder swelling )
Respiratory: Clear
Cardiac: S1/S2 and Regular Rhythm; No Murmur or Rub
GI: Soft, Non Tender, Non Distended and Normal Bowel Sounds; No Organomegaly
Rectal: Deferred by Provider
Musculoskeletal: No Clubbing, No Cyanosis and No Edema
Skin: No Rash
Neuro: Nonfocal/grossly intact
Data Reviewed
-
Lab Data: Labs Reviewed by me
Old Records: Reviewed
Impression/Plan
-
IMPRESSION:
PLAN:
# Left medial clavicle fracture with adjacent soft tissue hematoma
# Posterior scalp contusion
-CT head and CT C-spine otherwise unremarkable
-Tylenol, oxycodone for severe pain
-Orthopedics recommended 4 weeks of sling
-PT and case management saw patient, patient requires 3 days admission for placement given Medicare, family cannot take him home
-Hold Eliquis for tonight
Paroxysmal atrial fibrillation
-Continue amiodarone
-Hold Eliquis
Nonsustained ventricular tachycardia
History of frequent PVCs
Chronic HFpEF
-Continue Jardiance
-Continue Lasix
Right bundle branch
Essential hypertension
-Continue amlodipine
-Continue losartan
Hypercholesterolemia
-Continue statin
Prior CVA
COPD/asthma
-Continue levalbuterol
Sarcoidosis
Obstructive sleep apnea
-on CPAP
Parkinson's disease
-Continue carbidopa levodopa
CKD 3
-Renal function at baseline
Depression
-Continue sertraline
Chronic venous insufficiency
Diverticulosis
Colonic polyps
Degenerative disc disease
History of compression fractures
Full code
DVT prophylaxis-SCDs
Regular diet
--- NOTE | 2024-04-07 17:53 | PTCARENOTE ---
RN in room to re-apply sling. Pt refused sling. Pt refused ice. Spouse at bedside. Will send sling in pt belonging bag for floor to try again later. Will continue to monitor.
[2024-04-07] MEDS: SYMBICORT 80/4.5 MCG INHALER 2 PUFF INH (19:56)
[2024-04-07] MEDS: PACERONE 100 MG PO (20:21)
[2024-04-07] MEDS: SINEMET 25-100 1 TABLET PO (20:26)
[2024-04-07] MEDS: COZAAR 50 MG PO (20:26)
[2024-04-07] MEDS: TYLENOL 650 MG PO (20:26)
[2024-04-07] MEDS: CRESTOR 10 MG PO (20:27)
[2024-04-08] MEDS: MELATONIN 5 MG PO (00:28)
[2024-04-08] MEDS: TYLENOL 650 MG PO ×2 (00:28→17:20)
[2024-04-08 03:20] VITALS: BP 117/53
[2024-04-08 06:00] VITALS: BMI 24.2
[2024-04-08] MEDS: ROXICODONE 5 MG PO ×2 (06:20→12:04)
[2024-04-08 07:10] VITALS: BP 138/65
[2024-04-08 07:28] LABS: Hematocrit 33.7 % (39.0-52.0); Hemoglobin 10.9 g/dL (13.0-18.0); Mean Corp Hgb Conc. 32.3 g/dL (33.0-37.0); Mean Corpuscular Hgb 30.5 pg (27.0-31.0); Mean Corpuscular Volume 94.4 fL (80.0-94.0); Mean Platelet Volume 9.9 fL (7.4-10.4); Platelet Count 191 10^3/uL (130-400); Red Blood Cell Count 3.57 10^6/uL (4.70-6.10); Red Cell Dist. Width 13.9 % (11.5-14.5); White Blood Cell Count 6.4 10^3/uL (4.8-10.8)
[2024-04-08] MEDS: JARDIANCE 10 MG PO (07:35)
[2024-04-08] MEDS: ZOLOFT 50 MG PO (07:35)
[2024-04-08] MEDS: SINEMET 25-100 1 TABLET PO ×2 (07:35→17:13)
[2024-04-08] MEDS: NORVASC 2.5 MG PO (07:39)
[2024-04-08] MEDS: LASIX 20 MG PO (07:39)
[2024-04-08] MEDS: COZAAR 50 MG PO ×2 (07:39→19:57)
[2024-04-08] MEDS: SYMBICORT 80/4.5 MCG INHALER 2 PUFF INH ×2 (08:00→19:28)
[2024-04-08] MEDS: SPIRIVA RESPIMAT 2.5 MCG 2 PUFF INH (08:01)
[2024-04-08 08:07] LABS: Blood Urea Nitrogen 36 mg/dl (9-20); Calcium 8.8 mg/dl (8.4-10.2); Carbon Dioxide 26 mmol/L (22-30); Chloride 106 mmol/L (98-107); Estimated Creatinine Clearance 44 ml/min; Glucose 96 mg/dl (70-99); Potassium 4.8 mmol/L (3.5-5.1); Sodium 137 mmol/L (135-145); eGFR 50.49
--- NOTE | 2024-04-08 08:49 | W.PN.HOSP.TC ---
Today's Communication/Plan
-
PT/OT
Bowel regimen
Analgesics
Orthopedics
Assessment / Plan
Assessment / Plan
Gen-AAOx3, NAD
HEENT-NC, AT, anicteric, clear oral mm
Neck-supple
CV-reg, no M, +S1/S2
Lungs-clear B/L
Abd-soft, NT, ND
Ext-no edema, left upper extremity sling
Musculoskeletal-no cyanosis, clubbing
Skin-warm and dry
Neuro-grossly non-focal
Psych-calm, cooperative
Acute traumatic left clavicular fracture - due to fall and likely underlying osteoporosis. Continue analgesics, sling. Orthopedics consulted. Bowel regimen to prevent constipation. Hold Eliquis in light of hematoma around the fracture.
Paroxysmal atrial fibrillation -hold Eliquis, resume when okay with orthopedics.
CKD 3b -stable.
Macrocytic anemia -unknown acuity. Unknown etiology. Monitor for now.
Essential hypertension -stable.
Hyperlipidemia
Chronic heart failure preserved EF -stable.
History of stroke
COPD without exacerbation
SAÚL
Depression
Diverticulosis/colon polyps
Lumbar vertebral compression fractures
Sarcoidosis
Hx nonsustained ventricular tachycardia
Full code
Dispo - anticipate discharge to SNF. Needs 3 night stay per Medicare guideline.
Anticipated Discharge: > 48 hours
Subjective/Interval History
-
Date of Service: April 08, 2024
Patient seen and examined. Complaining of some left clavicular pain.
Objective Data
-
Labs:
Laboratory Results
04/08/24
06:59
WBC 6.4
Hgb 10.9 L
Hct 33.7 L
Plt Count 191
Sodium 137
Potassium 4.8
Chloride 106
Carbon Dioxide 26
BUN 36 H
Creatinine 1.4 H
Glucose 96
Calcium 8.8
Vital Signs:
Vital Signs
Temp Pulse Resp BP Pulse Ox
98.1 F 45 18 138/65 97
04/08/24 07:10 04/08/24 08:06 04/08/24 08:06 04/08/24 07:39 04/08/24 08:06
I&O
04/07/24 04/08/24 04/09/24
06:59 06:59 06:59
Intake Total 240 / 240
Output Total 300 / 300
Balance -60 / -60
Review of Systems
-
History Source: Patient
All other systems: Reviewed and negative
[2024-04-08] MEDS: SINEMET 25-100 1.5 TABLET PO (12:04)
[2024-04-08] MEDS: MIRALAX PO (12:06)
--- NOTE | 2024-04-08 14:29 | CM ---
VM received from Tee's who advised he would like to go to SNF at [facility]. Referral sent via [facility] for review by [facility].
I attempted to speak with Tee, however he was confused; I called Vanessa, Tee's , to make her aware that referral was sent to [facility]. Tee had been there earlier this year for about 6 weeks following a pneumothorax, so he feels
comfortable returning there for rehabilitation.
I briefly visited with Tee at bedside, however he was confused and unable to converse. Per his , this is not his normal mental state and she thinks it is likely medication effect.
CM will continue to follow to coordinate SNF transfer to [facility] when medically stable.
PCP: Winston Sibley
Pharmacy: [facility] in [place]
[2024-04-08 15:19] VITALS: BP 125/62; PULSE 43; O2SAT 95
[2024-04-08 15:20] VITALS: BP 117/53; BP 125/62; PULSE 43; O2SAT 95
[2024-04-08] MEDS: CRESTOR 10 MG PO (17:13)
[2024-04-08] MEDS: PACERONE 100 MG PO (17:13)
--- NOTE | 2024-04-08 18:13 | CON.ORTHO ---
Consultation - Orthopedics
History
HPI: 83-year-old male presented to the emergency department complaints left-sided chest wall pain after a fall in the [facility] office. He was subsequently diagnosed with a medial left clavicle fracture. He was admitted to the hospital service
and orthopedics was consulted. Today patient reports fairly well-controlled pain. Family members at the bedside. He is in a sling. He is taking pain medication and reports that this is helping quite a bit. Denies any other pain aside from pain
localized to the medial aspect of the left side chest wall. They do report that he has a history of significant for Parkinson's and does use a walker at baseline is quite unsteady on his feet typically.
Allergies / Home Medications
Past medical history: Hypercholesterolemia, hypertension, CVA, COPD, CHF, asthma, A-fib and Parkinson's
Past surgical history: Right total knee arthroplasty, appendectomy
Social history: Former smoker, retired, lives at home, uses walker
Family history: Not pertinent
Allergy/AdvReac Type Severity Reaction Status Date / Time
grass pollen Allergy SNEEZE,WATERY Verified 10/17/23 09:45
EYES
�Medication �Instructions �Recorded
amlodipine 2.5 mg tablet 2.5 mg PO DAILY Blood pressure 11/17/20
apixaban 5 mg tablet (Eliquis) 5 mg PO BID Blood clot 08/21/21
prevention/tx
losartan 50 mg tablet 50 mg PO BID Blood pressure 08/21/21
rosuvastatin 10 mg tablet 10 mg PO QPM High cholesterol 08/21/21
sertraline 50 mg tablet 50 mg PO DAILY 08/21/21
amiodarone 100 mg tablet 100 mg PO QPM 10/17/23
carbidopa 25 mg-levodopa 100 mg 1 tab PO BID@0800,1800 10/17/23
tablet
diphenhydramine 25 1 tab PO HS 10/17/23
mg-acetaminophen 500 mg tablet
(Tylenol PM Extra Strength)
empagliflozin 10 mg tablet 10 mg PO DAILY 10/17/23
(Jardiance)
furosemide 20 mg tablet 20 mg PO DAILY 10/17/23
levalbuterol tartrate 45 2 puff inhalation R Q4HPRN PRN 10/17/23
mcg/actuation aerosol inhaler sob/wheezing
carbidopa 25 mg-levodopa 100 mg 1.5 tab PO NOON 04/07/24
tablet
fluticasone fur. 100 mcg-umeclid 1 inh inhalation R DAILY 04/07/24
62.5 mcg-vilant 25 mcg
inhalat.powder (Trelegy Ellipta)
Vital Signs / Lab Results
Temp Pulse Resp BP Pulse Ox
97.5 F 47 16 132/62 96
04/08/24 15:20 04/08/24 17:13 04/08/24 15:20 04/08/24 17:13 04/08/24 15:20
04/08/24 06:59
04/08/24 06:59
10 point review systems reviewed and negative unless otherwise stated
General: Pleasant, no acute distress at rest seated comfortably in chair
Musculoskeletal left upper extremity
Skin intact, no erythema, there is an ecchymotic staining over the left side chest wall
There is palpable deformity medial clavicle
There is mild to moderate tenderness palpation in this area with no gross crepitus or motion
Range of motion testing deferred
No gross motor or sensory deficits distally
No other areas of bony tenderness palpation or crepitation of long bones or joints of tertiary examination
Diagnostic studies
Cervical spine CT scan axial slices do show a comminuted medial left clavicle fracture
Assessment / Plan
83-year-old male history of Parkinson's status post fall with a comminuted medial left clavicle fracture. I had a long discussion with the patient and family member at bedside regarding diagnosis. Would recommend conservative treatment.
Unfortunately the sling does make it difficult for him to use a walker. He was unable to use a hemiwalker. He is awaiting placement at rehab facility as there are concerns that he would be able to navigate appropriately in his home environment
with a sling. Would tenably recommend sling for about 4 weeks. Okay for active elbow wrist finger range of motion and passive shoulder range of motion as pain allows. I see patient back in about 3 weeks for repeat evaluation with repeat
radiographs in office on outpatient basis. All questions addressed and answered. Please reach out any questions or concerns
[2024-04-08 23:35] VITALS: BP 148/79
[2024-04-09 03:04] LABS: Urine Albumin Trace (Neg - Trace); Urine Bilirubin Negative (Negative); Urine Character Clear (Clear); Urine Color Yellow; Urine Glucose 3+ (Negative); Urine Ketone Negative (Negative); Urine Leukocyte Negative (Negative); Urine Nitrite Negative (Negative); Urine Occult Blood Negative (Negative); Urine Urobilinogen Negative (Neg - 1+)
[2024-04-09 07:10] VITALS: BP 162/92
[2024-04-09] MEDS: COZAAR 50 MG PO ×2 (07:34→20:48)
[2024-04-09] MEDS: JARDIANCE 10 MG PO (07:34)
[2024-04-09] MEDS: SINEMET 25-100 1 TABLET PO ×2 (07:34→17:04)
[2024-04-09] MEDS: ZOLOFT 50 MG PO (07:35)
[2024-04-09] MEDS: LASIX 20 MG PO (07:38)
[2024-04-09] MEDS: MIRALAX PO (07:39)
[2024-04-09] MEDS: NORVASC 2.5 MG PO (07:40)
[2024-04-09] MEDS: SPIRIVA RESPIMAT 2.5 MCG 2 PUFF INH (08:20)
[2024-04-09] MEDS: SYMBICORT 80/4.5 MCG INHALER 2 PUFF INH ×2 (08:20→20:05)
[2024-04-09] MEDS: XOPENEX HFA 45 MCG INHALER 2 PUFF INH (08:20)
[2024-04-09 08:22] LABS: % Basophils 0.4 % (0-2); % Eosinophils 2.2 % (0-6); % Immature Granulocytes 0.3 % (0-0.5); % Lymphocytes 12.8 % (20.5-51.1); % Monocytes 7.4 % (1.7-9.3); % Neutrophils 76.9 % (42.2-75.2); Absolute Eosinophils 0.2 10^3/uL (0-0.7); Absolute Lymphocytes 0.9 10^3/uL (1.2-3.4); Absolute Monocytes 0.5 10^3/uL (0.1-0.6); Absolute Neutrophils 5.5 10^3/uL (1.4-6.5); Hemoglobin 10.8 g/dL (13.0-18.0); Mean Corp Hgb Conc. 32.7 g/dL (33.0-37.0); Mean Corpuscular Hgb 30.2 pg (27.0-31.0); Mean Corpuscular Volume 92.2 fL (80.0-94.0); Nucleated Red Blood Cells % 0 % (-); Platelet Count 201 10^3/uL (130-400); Red Blood Cell Count 3.58 10^6/uL (4.70-6.10); Red Cell Dist. Width 13.9 % (11.5-14.5); White Blood Cell Count 7.1 10^3/uL (4.8-10.8)
[2024-04-09 08:41] VITALS: BMI 24.8
[2024-04-09 10:30] VITALS: BP 123/66; PULSE 52; O2SAT 97
--- NOTE | 2024-04-09 10:30 | PN.CDI ---
CDI
- -
CDI:
Physician Documentation Request
Admit Date: 04/08/24 08:54
Dear Doctor Karuna,
Patient admitted with acute left clavicular fracture.
04/08 Case management note, 'I attempted to speak with Tee, however he was confused......I briefly visited with Tee at bedside, however he was confused and unable to converse. Per his , this is not his normal mental state and she thinks
it is likely medication effect.'
Based on the above, please clarify in your note the likely etiology of the confusion/altered mental status:
Toxic metabolic encephalopathy
Metabolic encephalopathy
Other
Use of terms such as suspected, likely, concern for, or probable (associated with a specific diagnosis that is being evaluated, monitored, or treated as if it exists) are acceptable and can be coded in the inpatient setting, when documented at the
time of discharge.
Thank you,
Marta LOCK,RN,CCDS
CDI Specialist
Available via tiger text
Please use your independent medical judgment in providing your response.
[2024-04-09 10:35] VITALS: BP 123/66; PULSE 54; O2SAT 97
[2024-04-09] MEDS: SINEMET 25-100 1.5 TABLET PO (11:37)
[2024-04-09] MEDS: MIRALAX 17 GRAMS PO (11:40)
--- NOTE | 2024-04-09 11:41 | W.PN.HOSP.TC ---
Addendum entered and electronically signed by Choco Beckman DO 04/09/24 12:16:
Transient confusion due to oxycodone dose yesterday. This is not toxic metabolic encephalopathy.
Original Note:
Today's Communication/Plan
-
Discontinue oxycodone
Ultram as needed
Resume Eliquis
Continue PT/OT
Bowel regimen
Assessment / Plan
Assessment / Plan
Gen-AAOx3, NAD
HEENT-NC, AT, anicteric, clear oral mm
Neck-supple
CV-reg, no M, +S1/S2
Lungs-clear B/L
Abd-soft, NT, ND
Ext-no edema, left upper extremity sling
Musculoskeletal-no cyanosis, clubbing
Skin-warm and dry
Neuro-grossly non-focal
Psych-calm, cooperative
Acute traumatic left clavicular fracture - due to fall and likely underlying osteoporosis. Continue analgesics, sling. Orthopedics input noted, left upper extremity sling for 4 weeks, outpatient follow-up. Bowel regimen to prevent constipation.
Eliquis has been on hold but can resume today, I spoke with orthopedics.
Complaining of nausea due to the oxycodone. Will discontinue and use Ultram as needed. Encouraged him to take MiraLAX daily to prevent constipation. So far he has refused to take it in the hospital. Discussed with nursing.
Paroxysmal atrial fibrillation -resume Eliquis. Discussed with Dr. Berry.
CKD 3b -stable.
Macrocytic anemia -unknown acuity. Unknown etiology. Monitor for now.
Essential hypertension -stable.
Hyperlipidemia
Chronic heart failure preserved EF -stable.
History of stroke
COPD without exacerbation
SAÚL
Depression
Diverticulosis/colon polyps
Lumbar vertebral compression fractures
Sarcoidosis
Hx nonsustained ventricular tachycardia
Full code
Dispo - anticipate discharge to SNF.
Anticipated Discharge: Within 24 hours
Subjective/Interval History
-
Date of Service: April 09, 2024
Patient seen and examined. Complaining of left shoulder pain.
Objective Data
-
Labs:
Laboratory Results
04/09/24
07:46
WBC 7.1
Hgb 10.8 L
Hct 33.0 L
Plt Count 201
Vital Signs:
Vital Signs
Temp Pulse Resp BP Pulse Ox
97.7 F 51 16 162/92 96
04/09/24 07:10 04/09/24 08:21 04/09/24 08:21 04/09/24 07:34 04/09/24 08:21
I&O
04/08/24 04/09/24 04/10/24
06:59 06:59 06:59
Intake Total 240 / 240
Output Total 300 / 300 675 / 675
Balance -60 / -60 -675 / -675
Review of Systems
-
History Source: Patient
All other systems: Reviewed and negative
[2024-04-09] MEDS: ULTRAM 50 MG PO (12:14)
[2024-04-09 15:10] VITALS: BP 139/56
--- NOTE | 2024-04-09 15:23 | CM ---
CM continues to follow for discharge to SNF. I spoke with Tee's via telephone and also met with her in person.
Tee is eligible to use the [employer] waiver for other SNF facilities that can waive the 3 day stay, however since Tee has been in [facility] earlier this year, he and his family do not want to consider other options and insist on
[facility] who has been anticipating discharge this weekend.
CM provided IMM to who is choosing to appeal the discharge. Family does not want to pay privately for SNF, so they are hoping the appeal will add more inpatient days to the stay to qualify for SNF.
Plan: CM will continue to follow for discharge planning, likely to [facility].
--- NOTE | 2024-04-09 15:30 | W.DS.TRANS ---
DC Summary - Authorization Nurse
-
Discharge Instructions:
Discharge Diagnosis/Procedures Left clavicular fracture
Diet Regular
Activity With assistance
Driving Restrictions No driving
Bathing Restrictions None
Instructions:
Stand-Alone Forms:
Changes to Home Medications: No
Discharge Medications:
DC Medications w/original date entered in [employer]
amlodipine 2.5 mg tablet 2.5 mg PO DAILY Blood pressure 11/17/20
apixaban 5 mg tablet (Eliquis) 5 mg PO BID Blood clot prevention/tx 08/21/21
losartan 50 mg tablet 50 mg PO BID Blood pressure 08/21/21
rosuvastatin 10 mg tablet 10 mg PO QPM High cholesterol 08/21/21
sertraline 50 mg tablet 50 mg PO DAILY 08/21/21
amiodarone 100 mg tablet 100 mg PO QPM 10/17/23
carbidopa 25 mg-levodopa 100 mg tablet 1 tab PO BID@0800,1800 10/17/23
empagliflozin 10 mg tablet (Jardiance) 10 mg PO DAILY 10/17/23
furosemide 20 mg tablet 20 mg PO DAILY 10/17/23
levalbuterol tartrate 45 mcg/actuation aerosol inhaler 2 puff inhalation R Q4HPRN PRN sob/wheezing 10/17/23
carbidopa 25 mg-levodopa 100 mg tablet 1.5 tab PO NOON 04/07/24
fluticasone fur. 100 mcg-umeclid 62.5 mcg-vilant 25 mcg inhalat.powder (Trelegy Ellipta) 1 inh inhalation R DAILY 04/07/24
bisacodyl 10 mg rectal suppository 10 mg SC DAILYPRN PRN constipation #0 ea 04/09/24
polyethylene glycol 3350 17 gram oral powder packet (HealthyLax) 17 g PO DAILY #0 ea 04/09/24
tramadol 50 mg tablet 50 mg PO Q6HPRN PRN severe pain #10 tabs 04/09/24
Home Medication Changes
Pending Results: No
[2024-04-09] MEDS: PACERONE 100 MG PO (17:04)
[2024-04-09] MEDS: CRESTOR 10 MG PO (17:04)
[2024-04-09] MEDS: ELIQUIS 5 MG PO (20:49)
[2024-04-09 23:43] VITALS: BP 127/72
[2024-04-10 07:10] VITALS: BP 158/73
[2024-04-10] MEDS: SPIRIVA RESPIMAT 2.5 MCG 2 PUFF INH (07:17)
[2024-04-10] MEDS: SYMBICORT 80/4.5 MCG INHALER 2 PUFF INH ×2 (07:17→20:08)
[2024-04-10] MEDS: ELIQUIS 5 MG PO ×2 (08:20→20:18)
[2024-04-10] MEDS: LASIX 20 MG PO (08:20)
[2024-04-10] MEDS: COZAAR 50 MG PO ×2 (08:20→20:17)
[2024-04-10] MEDS: SINEMET 25-100 1 TABLET PO ×2 (08:20→17:05)
[2024-04-10] MEDS: NORVASC 2.5 MG PO (08:20)
[2024-04-10] MEDS: ZOLOFT 50 MG PO (08:20)
[2024-04-10] MEDS: JARDIANCE 10 MG PO (08:21)
[2024-04-10] MEDS: MIRALAX 17 GRAMS PO (08:21)
--- NOTE | 2024-04-10 10:32 | CM ---
CM spoke with patient's via telephone this AM. [facility] is offering a bed at discharge.
Await determination from [facility] regarding discharge appeal. Case# [id number]; outcome notifications pending - should be contacted via telephone.
Plan: CM will continue to follow; pt/family want [facility] where a bed is available for transfer on Friday. 04/11/2024.
--- NOTE | 2024-04-10 10:48 | W.PN.HOSP.TC ---
Today's Communication/Plan
-
Bowel regimen
Discharge planning
Assessment / Plan
Assessment / Plan
Gen-AAOx3, NAD
HEENT-NC, AT, anicteric, clear oral mm
Neck-supple
CV-reg, no M, +S1/S2
Lungs-clear B/L
Abd-soft, NT, ND
Ext-no edema, left upper extremity sling
Musculoskeletal-no cyanosis, clubbing
Skin-warm and dry
Neuro-grossly non-focal
Psych-calm, cooperative
Acute traumatic left clavicular fracture - due to fall and likely underlying osteoporosis. Continue analgesics, sling. Orthopedics input noted, left upper extremity sling for 4 weeks, outpatient follow-up.
Continue Ultram as needed pain.
Constipation -continue MiraLAX, add Colace and Dulcolax. He does not want a suppository. If no bowel movement will need magnesium citrate.
Paroxysmal atrial fibrillation -continue Eliquis.
CKD 3b -stable.
Macrocytic anemia -unknown acuity. Unknown etiology. Monitor for now.
Essential hypertension -stable.
Hyperlipidemia -on rosuvastatin.
Chronic heart failure preserved EF -stable.
History of stroke
COPD without exacerbation
SAÚL
Depression
Diverticulosis/colon polyps
Lumbar vertebral compression fractures
Sarcoidosis
Hx nonsustained ventricular tachycardia
Full code
Dispo - anticipate discharge to SNF. Medically stable for discharge. Case management aware.
Anticipated Discharge: Within 24 hours
Subjective/Interval History
-
Date of Service: April 10, 2024
Patient seen and examined. Still constipated. Having some left upper chest pain due to the clavicular fracture.
Objective Data
-
Vital Signs:
Vital Signs
Temp Pulse Resp BP Pulse Ox
97.8 F 50 16 158/73 96
04/10/24 07:10 04/10/24 08:20 04/10/24 07:22 04/10/24 08:20 04/10/24 09:27
I&O
04/09/24 04/10/24 04/11/24
06:59 06:59 06:59
Intake Total 340 / 340
Output Total 675 / 675
Balance -675 / -675 340 / 340
Review of Systems
-
History Source: Patient
All other systems: Reviewed and negative
[2024-04-10] MEDS: DULCOLAX 10 MG PO (11:25)
[2024-04-10] MEDS: COLACE 100 MG PO (11:25)
[2024-04-10] MEDS: SINEMET 25-100 1.5 TABLET PO (11:26)
--- NOTE | 2024-04-10 12:59 | CM ---
Addendum entered by Leona cMcarthy 04/10/24 14:03:
Transport plans have changed from w/c van to ambulance. Tee is having a lot of pain when moving and is not able to sit in the wheelchair for the ride to SNF.
Ambulance transport request submitted for 1pm vegetable picker to go to [facility] on 04/10/2024.
Plan: Discharge to [facility] 04/12/2024 via ambulance
Original Note:
CM received results of [facility] Discharge appeal; Mrs. Chadwick also advised via a call from [facility].
Case# [id number] has been upheld, so Tee will need to be discharged by tomorrow, 04/11/2024. [facility] has a bed available for transfer tomorrow. W/C van transport being arranged today for discharge tomorrow. is aware of cost for
same and will call with payment once transport is scheduled.
Plan: Discharge to [facility] 04/11/2024 via w/c van.
[2024-04-10 15:05] LABS: COVID-19 Antigen Negative (Negative)
[2024-04-10 15:12] VITALS: BP 127/53
[2024-04-10] MEDS: PACERONE 100 MG PO (17:04)
[2024-04-10] MEDS: CRESTOR 10 MG PO (17:05)
[2024-04-10 20:16] VITALS: BP 154/76
[2024-04-10] MEDS: COLACE PO ×2 (20:17→20:25)
[2024-04-10 23:44] VITALS: BP 148/71
[2024-04-11] MEDS: SPIRIVA RESPIMAT 2.5 MCG 2 PUFF INH (07:03)
[2024-04-11] MEDS: SYMBICORT 80/4.5 MCG INHALER INH ×2 (07:03→07:09)
[2024-04-11] MEDS: XOPENEX HFA 45 MCG INHALER 2 PUFF INH (07:03)
[2024-04-11 07:10] VITALS: BP 168/79
--- NOTE | 2024-04-11 08:24 | W.PN.HOSP.TC ---
Today's Communication/Plan
-
Bowel regimen
Discharge planning
Assessment / Plan
Assessment / Plan
Gen-awake, alert, NAD
HEENT-NC, AT, anicteric, clear oral mm
Neck-supple
CV-reg, no M, +S1/S2
Lungs-clear B/L
Abd-soft, NT, ND
Ext-no edema, left upper extremity sling
Musculoskeletal-no cyanosis, clubbing
Skin-warm and dry
Neuro-grossly non-focal
Psych-calm, cooperative
Acute traumatic left clavicular fracture - due to fall and likely underlying osteoporosis. Continue analgesics, sling. Orthopedics input noted, left upper extremity sling for 4 weeks, outpatient follow-up.
Continue Ultram as needed pain.
Hospital-acquired delirium -will treat supportively.
Constipation -continue MiraLAX, add Colace and Dulcolax. He does not want a suppository. Magnesium citrate ordered. Refused Colace last night.
Paroxysmal atrial fibrillation -continue Eliquis.
CKD 3b -stable.
Macrocytic anemia -unknown acuity. Unknown etiology. Monitor for now.
Essential hypertension -stable.
Hyperlipidemia -on rosuvastatin.
Chronic heart failure preserved EF -stable.
History of stroke
COPD without exacerbation
SAÚL
Depression
Diverticulosis/colon polyps
Lumbar vertebral compression fractures
Sarcoidosis
Hx nonsustained ventricular tachycardia
Full code
Dispo - anticipate discharge to SNF. Medically stable for discharge. Case management aware.
Anticipated Discharge: Today
Subjective/Interval History
-
Date of Service: April 11, 2024
Patient seen and examined. No complaints this morning. Seems somewhat confused.
Objective Data
-
Vital Signs:
Vital Signs
Temp Pulse Resp BP Pulse Ox
97.4 F 57 20 168/79 95
04/11/24 07:10 04/11/24 07:10 04/11/24 07:10 04/11/24 07:10 04/11/24 07:10
I&O
04/10/24 04/11/24 04/12/24
06:59 06:59 06:59
Intake Total 340 / 340 720 / 720
Output Total 350 / 350
Balance 340 / 340 370 / 370
Review of Systems
-
History Source: Patient
All other systems: Reviewed and negative
[2024-04-11] MEDS: CITROMA 300 ML PO (09:10)
[2024-04-11] MEDS: SINEMET 25-100 1 TABLET PO (09:11)
[2024-04-11] MEDS: LASIX 20 MG PO (09:11)
[2024-04-11] MEDS: ZOLOFT 50 MG PO (09:11)
[2024-04-11] MEDS: ELIQUIS 5 MG PO (09:11)
[2024-04-11] MEDS: COZAAR 50 MG PO (09:11)
[2024-04-11] MEDS: NORVASC 2.5 MG PO (09:12)
[2024-04-11] MEDS: MIRALAX PO (09:12)
[2024-04-11] MEDS: COLACE PO (09:12)
--- NOTE | 2024-04-11 09:48 | CM ---
clinical study manager reviewed patient's chart and spoke with nursing and per nursing patient's roommate is now requiring isolation, patient was tested but he tested negative, community case manager spoke with Shannan field pipe lines supervisor at [facility] and she spoke with
[place] (her boss) and per [facility], they can accept patient today and will isolate patient. clinical study manager reached out to patient's spouse to confirm that patient has been set up to leave [facility] today to go to [facility] at 1pm.
Plan; Patient to transfer to [facility] today at 1pm.
Report [phone]
[2024-04-11] MEDS: JARDIANCE PO (10:17)
--- NOTE | 2024-04-11 11:44 | PTCARENOTE ---
Called [facility] to give report and waited on hold for a while, had to hang up with no answer.
[2024-04-11] MEDS: SINEMET 25-100 PO (12:07)
[2024-04-11 12:30] VITALS: BP 144/76
== END 2024-04-11 14:22 | DRG 543 ==
LOC: 4 EAST ACU 08:54
PROVIDERS: Registered Nurse; ADMITTING PHYSICIAN Hospitalist; ATTENDING PHYSICIAN Hospitalist; CONSULT PHYSICIAN Orthopaedic Surgery; EMERGENCY PHYSICIAN Emergency Medicine; FAMILY PHYSICIAN Internal Medicine
DX: M80.012A Age-related osteoporosis with current pathological fracture, left shoulder, initial encounter for fracture (principal); F05 Delirium due to known physiological condition; I13.0 Hypertensive heart and chronic kidney disease with heart failure and stage 1 through stage 4 chronic kidney disease, or unspecified chronic kidney disease; I50.32 Chronic diastolic (congestive) heart failure; J44.0 Chronic obstructive pulmonary disease with (acute) lower respiratory infection; I47.20 Ventricular tachycardia, unspecified; W19.XXXA Unspecified fall, initial encounter; Y93.01 Activity, walking, marching and hiking; Y92.89 Other specified places as the place of occurrence of the external cause; M54.2 Cervicalgia; E78.00 Pure hypercholesterolemia, unspecified; J30.1 Allergic rhinitis due to pollen; G20.A1 Parkinson's disease without dyskinesia, without mention of fluctuations; G47.33 Obstructive sleep apnea (adult) (pediatric); S00.03XA Contusion of scalp, initial encounter; I87.2 Venous insufficiency (chronic) (peripheral); F32.A Depression, unspecified; E11.22 Type 2 diabetes mellitus with diabetic chronic kidney disease; N18.32 Chronic kidney disease, stage 3b; D53.9 Nutritional anemia, unspecified; E78.5 Hyperlipidemia, unspecified; I48.0 Paroxysmal atrial fibrillation; M80.08XA Age-related osteoporosis with current pathological fracture, vertebra(e), initial encounter for fracture; D86.9 Sarcoidosis, unspecified; K59.00 Constipation, unspecified; R41.0 Disorientation, unspecified; T40.2X5A Adverse effect of other opioids, initial encounter; Y92.239 Unspecified place in hospital as the place of occurrence of the external cause; Z86.73 Personal history of transient ischemic attack (TIA), and cerebral infarction without residual deficits; Z87.01 Personal history of pneumonia (recurrent); Z87.891 Personal history of nicotine dependence; Z79.01 Long term (current) use of anticoagulants; Z87.19 Personal history of other diseases of the digestive system; Z79.84 Long term (current) use of oral hypoglycemic drugs; Z79.51 Long term (current) use of inhaled steroids; Z86.010 Personal history of colon polyps; Z11.52 Encounter for screening for COVID-19
CPT/HCPCS: 70450; 72125; 73030; 80048; 81003; 85025; 85027; 87811; 94640; 97116; 97167; 97530; 97535; 99285

== ENCOUNTER → 2024-07-22 13:34 | Outpatient (REF) | payer MEDICARE, BC, SELFPAY | LOC: RAD 13:34 | PROVIDERS: ATTENDING PHYSICIAN Internal Medicine Cardiovascular Disease; FAMILY PHYSICIAN Internal Medicine | DX: I50.33 Acute on chronic diastolic (congestive) heart failure (principal); Z79.899 Other long term (current) drug therapy | CPT/HCPCS: 71046; 93306 ==

== ENCOUNTER → 2024-07-23 11:13 | Outpatient (REF) | payer MEDICARE, BC, SELFPAY ==
[2024-07-23 12:50] LABS: NT-proBNP 1010 pg/ml
[2024-07-23 13:12] LABS: TSH 1.79 uIU/ml (0.47-4.68)
[2024-07-23 13:38] LABS: ALT (SGPT) < 10 U/L (0-50); AST (SGOT) 23 U/L (17-59); Albumin 3.9 g/dl (3.5-5.0); Alkaline Phosphatase 112 U/L (38-126); Blood Urea Nitrogen 32 mg/dl (9-20); Calcium 8.8 mg/dl (8.4-10.2); Carbon Dioxide 25 mmol/L (22-30); Chloride 107 mmol/L (98-107); Glucose 80 mg/dl (70-99); HDL Cholesterol 58 mg/dl; LDL Cholesterol, Calculated 64 mg/dl; Potassium 4.9 mmol/L (3.5-5.1); Sodium 141 mmol/L (135-145); Total Bilirubin 0.5 mg/dl (0.2-1.3); Total Cholesterol 135 mg/dl (50-199); Total Protein 6.5 g/dl (6.3-8.2); Triglyceride 65 mg/dl (10-149); Very Low Density Lipoprotein 13 mg/dl (0-30); eGFR 50.49
[2024-07-25 09:59] LABS: Quantiferon Mitogen minus NIL 9.96 IU/mL; Quantiferon NIL 0.04 IU/mL; Quantiferon TB Gold Plus Negative (Negative)
== END ==
LOC: REG 11:13
PROVIDERS: ATTENDING PHYSICIAN Family Medicine; FAMILY PHYSICIAN Dermatology
DX: L40.0 Psoriasis vulgaris (principal); Z79.899 Other long term (current) drug therapy; I10 Essential (primary) hypertension; E78.00 Pure hypercholesterolemia, unspecified
CPT/HCPCS: 36415; 80053; 80061; 83880; 84443; 86480

== ENCOUNTER 2024-10-19 16:02 | Emergency (ER) | payer MEDICARE, BC, SELFPAY ==
[2024-10-19 16:18] VITALS: BP 137/68
--- NOTE | 2024-10-19 16:21 | ED.GENMED ---
ED Provider Triage
<Morgan Lind PA-C - Last Filed: 10/19/24 16:23>
-
Patient seen by provider in Triage?: Seen in Triage
Attestation: A medical screening examination has been initiated by a qualified medical provider. Based on the assessment performed at this time, it has been determined that an emergent medical condition may exist and the patient has been informed
that further medical evaluation and possible additional diagnostic testing may be needed.
HPI: Sent by cardiology office for worsening shortness of breath and exertional dyspnea over the last 4 weeks. 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 Patient denies any chest pain
currently. No fevers or recent illnesses. Cardiology concern for possible CHF exacerbation. Patient also has known history of COPD. He does take Eliquis with compliance. Labs, EKG and chest x-ray ordered. Patient is otherwise stable.
GENERAL: Alert , in no apparent distress
EYE: No visual abnormalities.
NECK: Trachea midline
ENT: No visible abnormalities.
LUNGS: No acute respiratory distress
NEUROLOGICAL: Alert and oriented
SKIN: Skin intact. No visible changes.
MUSCULOSKELETAL: Moving extremities normally
PSYCH: Normal and appropriate interaction.
This is a medical evaluation conducted in person to initiate diagnostic evaluation and provide initial therapeutics. Please see further documentation by the treating clinician.
History of Present Illness
<Morgan Lind PA-C - Last Filed: 10/19/24 16:23>
General
Chief Complaint: Breathing Problem
Time Seen by Provider: 10/19/24 19:20
<Minnie Mckinney NP - Last Filed: 10/19/24 23:56>
General
Source: patient
Exam Limitations: none
Nursing documentation reviewed up to this point in time: agreed with
History of Present Illness
History of Present Illness:
83-year-old male with history of Parkinson's, CVA, COPD, CHF, A-fib on Eliquis, HTN, HLD, renal insufficiency, depression presents for increasing SOB, WILL over past month. Today went to Cardiology Dr. Carrillo's and had difficulty breathing as he was
trying to get up onto exam table so sent here for evaluation. at bedside states he wants him worked up for fluid overload.
Pt denies fever, n/v/d, has been constipated, took Miralax, starting to have small BM's, Denies chest pain, abdominal pain.
reports 10 lb weight gain since Nov.
Past History
<Morgan Lind PA-C - Last Filed: 10/19/24 16:23>
Past History
ED Past Medical History: Arrthythmia (Atrial fib), Asthma, CHF, COPD, CVA, HTN, Hypercholesterolemia and Other (Sarcoid, PNA, Parkinson)
ED Past Surgical History: Appendectomy
Social History
Tobacco: Former smoker
Alcohol: Daily (Scotch 1 glasses)
Drug: None
Personal:
Living: with family
Employment: Retired
Family History
Family History: Other (Noncontributory)
Review of Systems
<Minnie Mckinney AUTISM TUTOR - Last Filed: 10/19/24 23:56>
Review of Systems
Allergies reviewed?: Yes
All Other Systems: ROS reviewed and negative except as documented in HPI and ROS
Constitutional: Reports weight gain and fatigue; Denies fever
EENT: Denies sore throat
Respiratory: Reports trouble breathing; Denies cough
Cardiac: Denies chest pain
ABD/GI: Reports constipated; Denies abdominal pain, nausea, vomiting or diarrhea
: Denies dysuria, frequency or difficulty voiding
Neurological: Reports other (Parkinson's tremors)
Phy Exam
<Minnie Mckinney, AUTISM TUTOR - Last Filed: 10/19/24 23:56>
Physical Exam
Physical Exam:
GENERAL: No acute distress. A&Ox3.
CONSTITUTIONAL: Afebrile.
EYES: clear, conjunctivae normal
ENMT: moist mucus membranes, Pharynx nl
RESPIRATORY: Regular respirations, nonlabored, lungs clear.
CARDIOVASCULAR: Regular rate and rhythm, no murmurs, no rubs.
GI: Soft, nontender, normal BS
MUSCULOSKELETAL: Moves with ease. Well perfused.
SKIN: Warm, dry, pink
PSYCH: Normal mood and affect. Well kept, interactive and appropriate
NEUROLOGIC: Awake, alert and oriented. No focal neurological deficits
Scores
<Minnie Mckinney AUTISM TUTOR - Last Filed: 10/19/24 23:56>
Heart Failure Risk
Heart Failure Risk Score: Yes
History of Stroke or TIA: Yes
History of intubation for respiratory distress: No
Heart rate on ED arrival >/= 110: No
SaO2 <90% on arrival on room air: No
HR >/=110 during 3min walk test (or too ill to perform test): No
ECG has acute ischemic changes: No
Urea >/=12mmol/L (BUN 33.6mg/dL): Yes
Serum CO2>/=35mmol/L: No
Troponin I or T elevated to [place] Level (0.4mg/dL): No
NT-proBNP >/=5,000ng/L (5,000pg/ml): No
HF Risk Score: 2
Admission Status: MEDIUM RISK 9.2% Consider observation or discharge to home with homecare & f/u visit to PCP/[facility], or SNF for treatment
Course
<Morgan Lind PA-C - Last Filed: 10/19/24 16:23>
Orders/Labs/Results
Orders:
Orders
10/19/24 16:22
Electrocardiogram (*1) Urgent
Reason for Study: Shortness of Breath
EKG- Treatment ONCE
CR Chest - 2 Views Urgent
Comment:
Reason For Exam: SOB, weight gain
10/19/24 16:37
Complete Blood Count/With Diff Urgent
Comprehensive Metabolic Panel Urgent
NT-proBNP Urgent
Troponin I Urgent
10/19/24 19:38
COVID-19 Antigen Urgent
Source: Nasal Swab
Influenza A+B Rapid Molecular Urgent
SAMANTHA Source: Nasal Swab
Specimen Description:
Abnormal Lab Results
10/19/24
16:37
RBC 4.07 L 10^6/uL
(4.70-6.10)
Hgb 12.4 L g/dL
(13.0-18.0)
MCV 97.1 H fL
(80.0-94.0)
MCHC 31.4 L g/dL
(33.0-37.0)
Absolute Lymphs (auto) 0.9 L 10^3/uL
(1.2-3.4)
Lymphocytes % 14.0 L %
(20.5-51.1)
BUN 42 H mg/dl
(9-20)
Creatinine 2.0 H mg/dL
(0.7-1.3)
10/19/24 16:37
10/19/24 16:37
Vital Signs
Initial and Last Documented VS:
Initial Vital Signs
Temp Pulse Resp BP Pulse Ox
98.1 F 48 24 137/68 96
10/19/24 16:18 10/19/24 16:18 10/19/24 16:18 10/19/24 16:18 10/19/24 16:18
Last Documented Vital Signs
Temp Pulse Resp BP Pulse Ox
98.1 F 60 15 142/94 92
10/19/24 16:18 10/19/24 21:34 10/19/24 21:34 10/19/24 21:55 10/19/24 21:38
<Minnie Rodriguez Day, AUTISM TUTOR - Last Filed: 10/19/24 23:56>
Orders/Labs/Results
Orders:
Orders
10/19/24 16:22
Electrocardiogram (*1) Urgent
Reason for Study: Shortness of Breath
EKG- Treatment ONCE
CR Chest - 2 Views Urgent
Comment:
Reason For Exam: SOB, weight gain
10/19/24 16:37
Complete Blood Count/With Diff Urgent
Comprehensive Metabolic Panel Urgent
NT-proBNP Urgent
Troponin I Urgent
10/19/24 19:38
COVID-19 Antigen Urgent
Source: Nasal Swab
Influenza A+B Rapid Molecular Urgent
SAMANTHA Source: Nasal Swab
Specimen Description:
Abnormal Lab Results
10/19/24
16:37
RBC 4.07 L 10^6/uL
(4.70-6.10)
Hgb 12.4 L g/dL
(13.0-18.0)
MCV 97.1 H fL
(80.0-94.0)
MCHC 31.4 L g/dL
(33.0-37.0)
Absolute Lymphs (auto) 0.9 L 10^3/uL
(1.2-3.4)
Lymphocytes % 14.0 L %
(20.5-51.1)
BUN 42 H mg/dl
(9-20)
Creatinine 2.0 H mg/dL
(0.7-1.3)
10/19/24 16:37
10/19/24 16:37
Vital Signs
Initial and Last Documented VS:
Initial Vital Signs
Temp Pulse Resp BP Pulse Ox
98.1 F 48 24 137/68 96
10/19/24 16:18 10/19/24 16:18 10/19/24 16:18 10/19/24 16:18 10/19/24 16:18
Last Documented Vital Signs
Temp Pulse Resp BP Pulse Ox
98.1 F 60 15 142/94 92
10/19/24 16:18 10/19/24 21:34 10/19/24 21:34 10/19/24 21:55 10/19/24 21:38
<Minnie Mckinney AUTISM TUTOR - Last Filed: 10/19/24 23:56>
MDM/Problems Addressed
Differential Diagnosis Includes:
CHF, COPD exacerbation, PNA, Covid, Flu
MDM/Problems Addressed:
83-year-old male with history of Parkinson's, CVA, COPD, CHF, A-fib on Eliquis, HTN, HLD, renal insufficiency, depression presents for increasing SOB, WILL over past month. Today went to Cardiology Dr. Carrillo's and had difficulty breathing as he was
trying to get up onto exam table so sent here for evaluation. at bedside states he wants him worked up for fluid overload.
Pt denies fever, n/v/d, has been constipated, took Miralax, starting to have small BM's, Denies chest pain, abdominal pain.
reports 10 lb weight gain since Jul.
CBC with no clinically significant abnormality
CMP with no clinically significant abnormality, kidney function is baseline CKD
Troponin normal
BNP 937
9:15 PM:
Chest x-ray radiology report read: No acute cardiopulmonary disease.
Discussed findings with patient and .
He has been out of bed and ambulating with a walker with pulse ox dropping no lower than 93% most of the time at 94%.
and pt are both comfortable going home.
states she thinks pt panicked when he felt he couldn't breathe in the doctor's office. Pt has been calm. Patient in no distress. Work up here shows nothing worrisome.
BUN/creat trending up, from previous in 07/2024, states they have been 'up. He had lab work at cardiology office, last month, will call Dr. Carrillo's office tomorrow to be sure they are his baseline.
Noted documented BP of 141/130 rechecked: 141/94
Pt stable for discharge
<Minnie Mckinney NP - Last Filed: 10/19/24 23:56>
*Critical Care Note
Total Time (30-74mins, 75-104mins- exclusive of procedures): Not Applicable
ED Attending Note
<Morgan Lind PA-C - Last Filed: 10/19/24 16:23>
-
Portions of this chart may have been created with voice recognition software.� Occasional wrong word or��sound alike� substitutions may have occurred due to the inherent limitations of voice recognition software.
Discharge Plan
Departure
Patient Disposition: Home (Routine Discharge)
Date of Disposition: 10/19/24
Time of Disposition: 21:53
Patient with high blood pressure during this ER visit?: No
Condition: Good
Discharge Problem:
Anxiety attack, Exertional shortness of breath
Instructions: Shortness of Breath (Dyspnea) (DC), Anxiety in adults - ED discharge instructions
Prescriptions:
No Action
amlodipine 2.5 MG tablet
2.5 mg PO DAILY
sertraline 50 MG tablet
50 mg PO DAILY
losartan 50 MG tablet
50 mg PO BID
rosuvastatin 10 MG tablet
10 mg PO QPM
Eliquis 5 MG tablet
5 mg PO BID
furosemide 20 mg tablet
20 mg PO DAILY
carbidopa-levodopa 25-100 mg tablet
1 tab PO BID@0800,1800
amiodarone 100 mg tablet
100 mg PO QPM
levalbuterol tartrate 45 mcg/actuation HFA aerosol inhaler
2 puff INHALATION R Q4HPRN PRN (Reason: sob/wheezing)
Jardiance 10 mg tablet
10 mg PO DAILY
carbidopa-levodopa 25-100 mg tablet
1.5 tab PO NOON
Trelegy Ellipta 100-62.5-25 mcg blister with device
1 inh INHALATION R DAILY
polyethylene glycol 3350 [HealthyLax] 17 gram Powder In Packet
17 g PO DAILY Qty: 0 0RF
tramadol 50 mg Tablet
50 mg PO Q6HPRN PRN (Reason: severe pain) Qty: 10 0RF
bisacodyl 10 mg Suppository
10 mg NC DAILYPRN PRN (Reason: constipation) Qty: 0 0RF
Referrals:
Reuben Carrillo MD [Active] - As needed
Activity Restrictions/Additional Instructions:
As we discussed, your workup here today shows nothing worrisome. Specifically no sign of congestive heart failure, heart attack, COPD exacerbation.
Check with Dr. Carrillo's office tomorrow to make sure that his BUN/creat of 42/2.0 typical for him
Like you both agreed you may have had an anxiety/panic attack when you felt short of breath.
Interventions
Interventions:
*Risk Screen - Suicide Last Done: 10/19/24 16:18
*General Assessment Last Done: 10/19/24 16:18
*Neglect/Abuse Screening Last Done: 10/19/24 16:18
ED- Fall Risk Assessment Last Done: 10/19/24 19:35
*ED COVID-19 Vaccine History Last Done: 10/19/24 19:35
*Nursing Disposition Last Done: 10/19/24 22:17
ED- Cardiac Assessment Last Done: 10/19/24 19:35
ED- Pulmonary Assessment Last Done: 10/19/24 19:35
Discharge Date and Time
Discharge Date/Time: 10/19/24 22:18
Print Language: KITTITIAN
[2024-10-19 16:53] LABS: % Basophils 0.5 % (0-2); % Eosinophils 3.5 % (0-6); % Immature Granulocytes 0.3 % (0-0.5); % Monocytes 7.4 % (1.7-9.3); % Neutrophils 74.3 % (42.2-75.2); Absolute Eosinophils 0.2 10^3/uL (0-0.7); Absolute Lymphocytes 0.9 10^3/uL (1.2-3.4); Absolute Monocytes 0.5 10^3/uL (0.1-0.6); Absolute Neutrophils 4.9 10^3/uL (1.4-6.5); Hematocrit 39.5 % (39.0-52.0); Hemoglobin 12.4 g/dL (13.0-18.0); Mean Corp Hgb Conc. 31.4 g/dL (33.0-37.0); Mean Corpuscular Hgb 30.5 pg (27.0-31.0); Mean Corpuscular Volume 97.1 fL (80.0-94.0); Mean Platelet Volume 9.6 fL (7.4-10.4); Nucleated Red Blood Cells % 0 % (-); Platelet Count 211 10^3/uL (130-400); Red Blood Cell Count 4.07 10^6/uL (4.70-6.10); Red Cell Dist. Width 13.9 % (11.5-14.5); White Blood Cell Count 6.6 10^3/uL (4.8-10.8)
[2024-10-19 17:06] LABS: ALT (SGPT) < 10 U/L (0-50); AST (SGOT) 23 U/L (17-59); Albumin 4.6 g/dl (3.5-5.0); Alkaline Phosphatase 113 U/L (38-126); Blood Urea Nitrogen 42 mg/dl (9-20); Calcium 8.8 mg/dl (8.4-10.2); Carbon Dioxide 29 mmol/L (22-30); Chloride 99 mmol/L (98-107); Glucose 93 mg/dl (70-99); Potassium 4.8 mmol/L (3.5-5.1); Sodium 136 mmol/L (135-145); Total Bilirubin 0.8 mg/dl (0.2-1.3); eGFR 32.91
[2024-10-19 17:17] LABS: NT-proBNP 937 pg/ml; Troponin I < 0.012 ng/ml
[2024-10-19 19:27] VITALS: BMI 29.0
[2024-10-19 19:28] VITALS: BP 162/77
[2024-10-19 19:58] LABS: COVID-19 Antigen Negative (Negative)
[2024-10-19 21:34] VITALS: BP 141/130
[2024-10-19 21:55] VITALS: BP 142/94
== END 2024-10-19 22:18 | disposition home or self-care (01) ==
LOC: EMR 16:02
PROVIDERS: Physician Assistant Medical; Registered Nurse; EMERGENCY PHYSICIAN Student in an Organized Health Care Education/Training Program; FAMILY PHYSICIAN Internal Medicine
DX: F41.0 Panic disorder [episodic paroxysmal anxiety] (principal); R06.02 Shortness of breath; I11.0 Hypertensive heart disease with heart failure; I50.9 Heart failure, unspecified; E78.00 Pure hypercholesterolemia, unspecified; J44.89 Other specified chronic obstructive pulmonary disease; Z11.52 Encounter for screening for COVID-19; Z87.891 Personal history of nicotine dependence; Z79.01 Long term (current) use of anticoagulants; Z86.73 Personal history of transient ischemic attack (TIA), and cerebral infarction without residual deficits; G20.A1 Parkinson's disease without dyskinesia, without mention of fluctuations
CPT/HCPCS: 99285; 71046; 80053; 83880; 84484; 85025; 87502; 87811; 93005

== ENCOUNTER → 2025-04-04 13:13 | Outpatient (REF) | payer MEDICARE, BC, SELFPAY ==
[2025-04-04 15:17] LABS: ALT (SGPT) < 10 U/L (0-50); AST (SGOT) 23 U/L (17-59); Albumin 4.3 g/dl (3.5-5.0); Alkaline Phosphatase 88 U/L (38-126); Blood Urea Nitrogen 40 mg/dl (9-20); Calcium 9.1 mg/dl (8.4-10.2); Carbon Dioxide 24 mmol/L (22-30); Chloride 105 mmol/L (98-107); Glucose 97 mg/dl (70-99); HDL Cholesterol 80 mg/dl; LDL Cholesterol, Calculated 60 mg/dl; Potassium 4.9 mmol/L (3.5-5.1); Sodium 139 mmol/L (135-145); Total Protein 6.9 g/dl (6.3-8.2); Very Low Density Lipoprotein 13 mg/dl (0-30); eGFR 46.19
[2025-04-04 15:26] LABS: TSH 1.01 uIU/ml (0.47-4.68)
== END ==
LOC: REG 13:13
PROVIDERS: ATTENDING PHYSICIAN Internal Medicine Cardiovascular Disease; FAMILY PHYSICIAN Internal Medicine
DX: Z79.899 Other long term (current) drug therapy (principal); I50.32 Chronic diastolic (congestive) heart failure; I10 Essential (primary) hypertension; E78.00 Pure hypercholesterolemia, unspecified
CPT/HCPCS: 36415; 71046; 80053; 80061; 83880; 84443